=== PATIENT | male | born 1980 | race Caucasian/White ===

== ENCOUNTER 2016-10-26 17:40 | Emergency (ER) | payer OTHER ==
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
[2016-10-26] MEDS ORDERED: IBUPROFEN 400 MG TABLET (FP) PO ONE (17:48)
[2016-10-26 18:03] VITALS: BP 166/88; PULSE 67; TEMP 98.1; BMI 31.9
== END 2016-10-26 18:23 | disposition home or self-care (01) ==
LOC: FER 17:40
DX: S93.401A Sprain of unspecified ligament of right ankle, initial encounter (principal); W18.30XA Fall on same level, unspecified, initial encounter; Y93.89 Activity, other specified; Y92.511 Restaurant or cafe as the place of occurrence of the external cause; Y99.0 Civilian activity done for income or pay
CPT/HCPCS: 73610-TC-RT; 73630-TC-RT; 99282-25

== ENCOUNTER 2017-01-11 18:00 | Inpatient (IN) | payer OTHER ==
--- NOTE | 2017-01-11 18:04 | PDOC ---
History of Present Illness - General Chief Complaint: Respiratory Stated Complaint: COUGH Time Seen by Provider: 01/11/17 18:04 Past History - Past Medical History Allergies/Adverse Reactions: Allergies Allergy/AdvReac Type Severity Reaction Status Date / Time No Known Allergies Allergy Verified 01/11/17 18:03 Home Medications: Ambulatory Orders Insulin Glulisine [Apidra] unit SQ TID 09/24/14 Insulin Glargine,Hum.rec.anlog [Lantus (10mL VIAL) -] 50 units SQ BID 08/28/15 Etanercept [Enbrel] 50 mg SQ WEEKLY 09/12/15 Naproxen [Naprosyn] 500 mg PO BID PRN #20 tablet 10/26/16 Anemia: No Asthma: No Cancer: No Cardiac Disorders: No CVA: No COPD: No CHF: No Dementia: No Diabetes: Yes (type 2) GI Disorders: No Disorders: No HTN: No Hypercholesterolemia: No Liver Disease: No Seizures: No Thyroid Disease: No - Surgical History Abdominal Surgery: No Appendectomy: No Cardiac Surgery: No Cholecystectomy: No Lung Surgery: No Neurologic Surgery: No Orthopedic Surgery: No - Immunization History Immunization Up to Date: Yes - Psycho/Social/Smoking Cessation Hx Anxiety: No Suicidal Ideation: No Smoking Status: No Smoking History: Unknown if ever smoked Have you smoked in the past 12 months: No Number of Cigarettes Smoked Daily: 0 Hx Alcohol Use: No Drug/Substance Use Hx: No Substance Use Type: None Hx Substance Use Treatment: No *DC/Admit/Observation/Transfer - Discharge Dispostion Condition at time of disposition: Stable
[2017-01-11] MEDS ORDERED: SODIUM CHLORIDE 1,000 ML IV STA (18:14)
--- NOTE | 2017-01-11 18:15 | PDOC ---
History of Present Illness - General Chief Complaint: Respiratory Stated Complaint: COUGH Time Seen by Provider: 01/11/17 18:04 History Source: Patient, Significant Other Exam Limitations: No Limitations - History of Present Illness Initial Comments: 36 yo M with h/o diabetes and rheumatoid arthritis on enbrel presented to the ED with flu like symptoms x 1 month. The symptoms include productive cough with green sputum + blood tinted, fever with Tmax 104F, chills, sore throat, n/v, night sweat, ear pain, weight loss of 20lbs. One and half months ago, his girlfriend was screened for TB with quantiferon and it's positive but X-ray was negative. He denies recent travel, sick contact, being foreign born. Past History - Past Medical History Allergies/Adverse Reactions: Allergies Allergy/AdvReac Type Severity Reaction Status Date / Time No Known Allergies Allergy Verified 01/11/17 18:03 Home Medications: Ambulatory Orders Insulin Glulisine [Apidra] unit SQ TID 09/24/14 Insulin Glargine,Hum.rec.anlog [Lantus (10mL VIAL) -] 50 units SQ BID 08/28/15 Etanercept [Enbrel] 50 mg SQ WEEKLY 09/12/15 Anemia: No Asthma: No Cancer: No Cardiac Disorders: No CVA: No COPD: No CHF: No Dementia: No Diabetes: Yes GI Disorders: No Disorders: No HTN: No Hypercholesterolemia: No Liver Disease: No Seizures: No Thyroid Disease: No - Surgical History Abdominal Surgery: No Appendectomy: No Cardiac Surgery: No Cholecystectomy: No Lung Surgery: No Neurologic Surgery: No Orthopedic Surgery: No - Immunization History Immunization Up to Date: Yes - Psycho/Social/Smoking Cessation Hx Anxiety: No Suicidal Ideation: No Smoking Status: No Smoking History: Never smoked Have you smoked in the past 12 months: No Number of Cigarettes Smoked Daily: 0 Hx Alcohol Use: (occasional) Drug/Substance Use Hx: No Substance Use Type: None Hx Substance Use Treatment: No Review of Systems - Review of Systems Constitutional: Yes: Chills, Fever, Loss of Appetite, Malaise, Night Sweats, Unintentional Wgt. Loss (20lbs weight loss) HEENTM: Yes: Throat Pain Respiratory: Yes: Cough, Shortness of Breath, Productive cough Cardiac (ROS): Yes: Chest Pain (from coughing) : No: Dysuria *Physical Exam - Vital Signs Last Vital Signs Temp Pulse Resp BP Pulse Ox 98.7 F 97 H 24 133/91 95 01/11/17 18:00 01/11/17 18:00 01/11/17 18:00 01/11/17 18:00 01/11/17 18:00 - Physical Exam General Appearance: No: Apparent Distress Respiratory/Chest: positive: Lungs Clear, Normal Breath Sounds Cardiovascular: positive: Regular Rhythm, Regular Rate, S1, S2. negative: Murmur ED Treatment Course - LABORATORY CBC & Chemistry Diagram: 01/11/17 18:35 01/11/17 18:35 Medical Decision Making - Medical Decision Making 01/11/17 18:27 36 yo with immunosupressed state on enbrel p/w persist cough, night sweat, weight loss x 1 month. TB is high on the differentials. Will obtain chest pain, blood work. 01/11/17 18:40 Given 1gm Ceftriaxone IVPB and 1gm of vanco to cover atypicals due to his immunosupressed state *DC/Admit/Observation/Transfer Diagnosis at time of Disposition: Cough, Sepsis, Pneumonia - Discharge Dispostion Condition at time of disposition: Stable - Referrals Referrals: Venessa Feldman [Primary Care Provider] -
[2017-01-11 18:19] VITALS: BMI 28.8
--- NOTE | 2017-01-11 18:21 | PDOC ---
Attending Attestation - Resident Resident Name: Sai Caban - ED Attending Attestation I have performed the following: I have examined & evaluated the patient, The case was reviewed & discussed with the resident, I agree w/resident's findings & plan, Exceptions are as noted - HPI HPI: 01/11/17 18:15 The patient is a 36 year old male with a past medical history of type two diabetes, rheumatoid arthritis (on Etanercept) who presents to the ED complaining of 1 month of ongoing cough (productive of blood tinged green sputum ), fever, weight loss (20 pounds in 1 month) and night sweats. He denies travel to the [facility] and the [place] or [facility]. He denies travel outside of the country. He was born in the . He has no known contact with tuberculosis. He denies being ever being incarcerated. His place of residence apparently has many mice. He has not had contact with mouse feces. He has a cousin with similar symptoms. His girlfriend tested positive for TB via skin test in the distant past but has had a clear CXR for many years. 01/11/17 18:21 - Physicial Exam PE: 01/11/17 18:20 Vitals noted He is well appearing and in no acute distress He has no wheeze but he does have post-inspiratory cough He has no focal crackles 01/11/17 18:20 01/11/17 18:26 01/11/17 18:27 - Medical Decision Making 01/11/17 18:21 He is well appearing and in no acute distress He has two SIRS criteria -- heart rate greater than 90 and respiratory rate greater than 20 Infection is likely given his report of subjective fever He meets diagnostic criteria for sepsis Given his immunocompromised status the differential diagnosis is broad It includes mycobacterium tuberculosis, non-mycobacterial tuberculoid illnesses , fungal pneumonias, hanta virus, rheumatoid lung disease He could also just have post-infectious persistent bronchospasm He will require admission and ID consultation Will obtain labs Will administer duoneb 01/11/17 18:24 CXR emergency department interpretation: subtle increased interstitial markings in lower lung petersen Some very subtle obscuring of the left lateral inferior heart border Given his immunocompromised status I favor erring on the side of over-reading the CXR Will treat for community acquired pneumonia with Ceftriaxone and Azithromycin plus vancomycin Labs pending 01/11/17 18:41 Case discussed in detail with oncoming Emergency Physician including history, physical exam and ancillary studies. Oncoming Emergency Physician has assumed care for the patient and will complete the evaluation and treatment. 01/11/17 18:42 Discharge Disposition - Diagnosis Cough, Sepsis, Pneumonia - Discharge Dispostion Condition at time of disposition: Stable Admit: Yes - Referrals Referrals: Venessa Feldman [Primary Care Provider] -
[2017-01-11] MEDS ORDERED: ALBUTEROL SO4 2.5/IPRATROPIUM 0.5 INH SOL 3 ML VIAL.NEB. NEB ONE ×2 (18:24→18:43)
[2017-01-11] MEDS ORDERED: CEFTRIAXONE 1 GM in DEXTROSE 5%-WATER - 50 ML IVPB ONE ×2 (18:38→18:46)
[2017-01-11] MEDS ORDERED: VANCOMYCIN 1 GRAM (PRE-DOCKED) 1,000 MG/250 ML BAG IVPB ONE (18:46)
[2017-01-11] MEDS ORDERED: cefTRIAXone SODIUM 1 GM VIAL ONE (18:49)
[2017-01-11] MEDS ORDERED: VANCOMYCIN 1,000 MG VIAL (RESTRICTED TO ID ONLY) ONE (18:50)
[2017-01-11 18:59] LABS: BASOPHIL 0.5 % (0-2.0); EOSINOPHIL 0.3 % (0-4.5); MCH 29.9 pg (25.7-33.7); MCHC 34.8 g/dl (32.0-35.9); MEAN CELL VOLUME 85.9 fl (80-96); MEAN PLT VOLUME 10.3 fl (7.5-11.1); NEUTROPHILS 77.6 % (42.8-82.8); PLATELET COUNT 273 K/MM3 (134-434); RDW 11.8 % (11.9-15.9); WHITE BLOOD COUNT 17.3 K/mm3 (4.0-10.8)
[2017-01-11 19:05] LABS: ALBUMIN 3.7 g/dl (3.5-5.0); ALK PHOS 99 U/L (32-92); ANION GAP 10 (8-16); BILIRUBIN,TOTAL 0.5 mg/dl (0.2-1.0); CALCIUM 9.1 mg/dl (8.4-10.2); CO2 25 mmol/L (22-28); COCKROFT - GAULT 93.91; CREATININE 1.3 mg/dl (0.6-1.3); SGOT/AST 20 U/L (10-42); SGPT/ALT 29 U/L (10-40)
[2017-01-11 19:10] LABS: INR 1.17 (0.82-1.09); PROTHROMBIN TIME (PATIENT) 13.1 SEC (10.2-13.0)
[2017-01-11 19:17] LABS: GLUCOSE,RANDOM 382 mg/dl (74-106)
[2017-01-11] MEDS ORDERED: INSULIN REGULAR HUMAN 100 UNITS/ML *VIAL ONE (19:19)
[2017-01-11] MEDS ORDERED: INSULIN REGULAR HUMAN 100 UNITS/ML *VIAL IVPUSH ONE (19:19)
[2017-01-11] MEDS ORDERED: HEMOQUE TEST 1 EACH EACH ONE (19:45)
--- NOTE | 2017-01-11 21:17 | HP ---
CHIEF COMPLAINT: Productive Cough, Fever, Night Sweats, Weight Loss PCP: HISTORY OF PRESENT ILLNESS: This is a 36 y/o male with a past medical history of Type II DM, RA (on Embrel) . Who presents to the ED with productive cough- green phlegm, sore throat, hemoptysis, fever, night sweats, weakness, weight loss 30lbs since early December. Patient reports having low grade fevers 99-101 for approximately 2 weeks. Patient reports the cough varies from productive to non-productive and dry. Patient reports taking OTCs with little relief. Patient reports his cousin, who is his roommate had similar cold symptoms but recovered. He reports a recent rodent infestation in his building and apartment. He denies having any pets. Patient denies recent travel. Patient denies AP, vomiting, diarrhea, constipation, dysuria. ER course was notable for: (1) WBC 17.3 (2) Chest Xray- image infiltrate, report pending (3) Glucose 382 Recent Travel: None PAST MEDICAL HISTORY: See HPI PAST SURGICAL HISTORY: None Social History: Smoking: Never Alcohol: Occasional Drugs: None Lives with S.O. 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 Family History: Grandmother: DM Both parents - unknown hx Allergies No Known Allergies Allergy (Verified 01/11/17 18:03) HOME MEDICATIONS: Home Medications Medication Instructions Recorded Insulin Glulisine [Apidra] unit SQ TID 09/24/14 Insulin Glargine,Hum.rec.anlog 50 units SQ BID 08/28/15 [Lantus (10mL VIAL) -] Etanercept [Enbrel] 50 mg SQ WEEKLY 09/12/15 REVIEW OF SYSTEMS CONSTITUTIONAL: fever, generalized weakness, malaise, weight change Absent: chills, diaphoresis, loss of appetite HEENT: throat pain Absent: rhinorrhea, nasal congestion, throat swelling, difficulty swallowing, mouth swelling, ear pain, eye pain, visual changes CARDIOVASCULAR: Absent: chest pain, syncope, palpitations, irregular heart rate, lightheadedness , peripheral edema RESPIRATORY: cough, hemoptysis Absent: shortness of breath, dyspnea with exertion, orthopnea, wheezing, stridor , GASTROINTESTINAL: nausea Absent: abdominal pain, abdominal distension, vomiting, diarrhea, constipation, melena, hematochezia GENITOURINARY: Absent: dysuria, frequency, urgency, hesitancy, hematuria, flank pain, genital pain MUSCULOSKELETAL: myalgia Absent: arthralgia, joint swelling, back pain, neck pain SKIN: Absent: rash, itching, pallor HEMATOLOGIC/IMMUNOLOGIC: Absent: easy bleeding, easy bruising, lymphadenopathy, frequent infections ENDOCRINE: unexplained weight loss Absent: unexplained weight gain, heat intolerance, cold intolerance NEUROLOGIC: Absent: headache, focal weakness or paresthesias, dizziness, unsteady gait, seizure, mental status changes, bladder or bowel incontinence PSYCHIATRIC: Absent: anxiety, depression, suicidal or homicidal ideation, hallucinations. PHYSICAL EXAMINATION GENERAL: Awake, alert, and fully oriented, in no acute distress. HEAD: Normal with no signs of trauma. EYES: Pupils equal, round and reactive to light, extraocular movements intact, sclera anicteric, conjunctiva clear. No lid lag. EARS, NOSE, THROAT: Dry mucous membranes. Ears normal, nares patent, oropharynx clear without exudates. NECK: Normal range of motion, supple without lymphadenopathy, JVD, or masses. LUNGS: Breath sounds equal, clear to auscultation bilaterally. No wheezes, and no crackles. No accessory muscle use. HEART: Regular rate and rhythm, normal S1 and S2 without murmur, rub or gallop. ABDOMEN: Soft, nontender, not distended, normoactive bowel sounds, no guarding, no rebound, no masses. No hepatomegaly or splenomegaly. MUSCULOSKELETAL: Generalized tenderness. Normal range of motion at all joints. No bony deformities. No CVA tenderness. UPPER EXTREMITIES: 2+ pulses, warm, well-perfused. No cyanosis. No clubbing. No peripheral edema. LOWER EXTREMITIES: 2+ pulses, warm, well-perfused. No calf tenderness. No peripheral edema. NEUROLOGICAL: Cranial nerves II-XII intact. Normal speech. Normal gait. PSYCHIATRIC: Cooperative. Good eye contact. Appropriate mood and affect. SKIN: Warm, dry, normal turgor, no rashes or lesions noted, normal capillary refill. Laboratory Results - last 24 hr 3 01/11/17 01/11/17 01/11/17 18:35 18:35 18:35 WBC 17.3 H D RBC 4.95 Hgb 14.8 Hct 42.5 MCV 85.9 MCHC 34.8 RDW 11.8 L Plt Count 273 D MPV 10.3 D Neutrophils % 77.6 D Lymphocytes % 13.3 D Monocytes % 8.3 Eosinophils % 0.3 D Basophils % 0.5 INR 1.17 PTT (Actin FS) 24.0 L Sodium 132 L Potassium 4.1 Chloride 97 L Carbon Dioxide 25 Anion Gap 10 BUN 17 D Creatinine 1.3 Creat Clearance w eGFR > 60 Random Glucose 382 H* D Lactic Acid Calcium 9.1 Total Bilirubin 0.5 D AST 20 D ALT 29 Alkaline Phosphatase 99 H Total Protein 7.0 Albumin 3.7 Urine Color Urine Appearance Urine pH Ur Specific [place] Urine Protein Urine Glucose (UA) Urine Ketones Urine Blood Urine Nitrite Urine Bilirubin Urine Urobilinogen Ur Leukocyte Esterase 3 01/11/17 01/11/17 01/11/17 18:35 21:02 22:34 WBC RBC Hgb Hct MCV MCHC RDW Plt Count MPV Neutrophils % Lymphocytes % Monocytes % Eosinophils % Basophils % INR PTT (Actin FS) Sodium Potassium Chloride Carbon Dioxide Anion Gap BUN Creatinine Creat Clearance w eGFR Random Glucose Lactic Acid 1.654 0.962 Calcium Total Bilirubin AST ALT Alkaline Phosphatase Total Protein Albumin Urine Color Yellow Urine Appearance Clear Urine pH 6.0 Ur Specific [place] 1.020 Urine Protein Negative Urine Glucose (UA) 2+ H Urine Ketones 2+ H Urine Blood Negative Urine Nitrite Negative Urine Bilirubin Negative Urine Urobilinogen 0.2 e.u/dl Ur Leukocyte Esterase Negative 3 01/11/17 22:34 WBC RBC Hgb Hct MCV MCHC RDW Plt Count MPV Neutrophils % Lymphocytes % Monocytes % Eosinophils % Basophils % INR PTT (Actin FS) Sodium Potassium Chloride Carbon Dioxide Anion Gap BUN Creatinine Creat Clearance w eGFR Random Glucose 462 H* D Lactic Acid Calcium Total Bilirubin AST ALT Alkaline Phosphatase Total Protein Albumin Urine Color Urine Appearance Urine pH Ur Specific [place] Urine Protein Urine Glucose (UA) Urine Ketones Urine Blood Urine Nitrite Urine Bilirubin Urine Urobilinogen Ur Leukocyte Esterase ASSESSMENT/PLAN: This is a 36 y/o male with a PMHx of: Type II DM, RA (on Embrel). Who presents to the ED for fever, chills, cough, generalized bodyaches, hemopytsis, weight loss. Admitted for CAP, Sepsis, Cough for further evaluation of their emergent condition. Plan 1. Community Acquired Pneumonia - Blood Cultures-pending - Urine Culture- pending - Urine legionella-pending - +Leukocytosis - Vancomyxin, Ceftriaxone given in ED for broad spectrum coverage - Will continue Ceftriaxone, add Azithromycin - Appreciate ID Consult - Monitor CBC, BMP - Monitor vitals - Duonebs - O2 2. Sepsis - qSOFA Score 1 - SIRS Criteria II Met - See Above - LA x2 wnl - Continue IVF 3. Cough - r/o TB, Hanta Virus - Isolation Precautions - Appreciate ID Consult - Duonebs - Robitussin prn 4. Diabetes Mellitus - Uncontrolled - ISS - BGMs - Hold home meds for tighter glycemic control - HgBA1C in am - 1800 ADA Diet - f/u with Endocrinology in outpatient 5. RA - Continue Embrel weekly 6. FEN - NS@150cc/hr - Replete lytes prn - Low Na, 1800 ADA Diet 7. DVT Prophylaxis - OOB - SCDs Code Status: Full Code Dispo: Continue Inpatient Care Problem List - Problem (1) Pneumonia Code(s): J18.9 - PNEUMONIA, UNSPECIFIED ORGANISM (2) Sepsis Code(s): A41.9 - SEPSIS, UNSPECIFIED ORGANISM (3) Cough Code(s): R05 - COUGH (4) Diabetes Code(s): E11.9 - TYPE 2 DIABETES MELLITUS WITHOUT COMPLICATIONS (5) Rheumatoid arthritis Code(s): M06.9 - RHEUMATOID ARTHRITIS, UNSPECIFIED (6) DVT prophylaxis Code(s): IUT2671 - Visit type - Emergency Visit Emergency Visit: Yes ED Registration Date: 01/11/17 Care time: The patient presented to the Emergency Department on the above date and was hospitalized for further evaluation of their emergent condition. - New Patient This patient is new to me today: Yes Date on this admission: 01/11/17 - Critical Care Critical Care patient: No
[2017-01-11 23:06] LABS: URINE APPEARANCE Clear; URINE BILIRUBIN Negative (NEGATIVE); URINE BLOOD Negative (NEGATIVE); URINE GLUCOSE (UA) 2+ (NEGATIVE); URINE KETONE 2+ (NEGATIVE); URINE LEUK ESTERASE Negative (NEGATIVE); URINE NITRITE Negative (NEGATIVE); URINE PROTEIN Negative (NEGATIVE); URINE UROBILINOGEN 0.2 E.U/dl (0.2-1.0)
[2017-01-11 23:08] LABS: URINE COLOR YELLOW
[2017-01-11] MEDS ORDERED: INSULIN (NOVOLOG) ASPART 100 UNITS/ML 10ML VIAL SQ ONE (23:27)
[2017-01-11] MEDS ORDERED: INSULIN (NOVOLOG) ASPART 100 UNITS/ML 10ML VIAL ONE (23:28)
[2017-01-11] MEDS: INSULIN SLIDING SCALE (NOVOLOG) 1 VIAL SQ SCH (23:37)
[2017-01-12] MEDS ORDERED: ALBUTEROL SO4 2.5/IPRATROPIUM 0.5 INH SOL 3 ML VIAL.NEB. NEB PRN (00:19)
[2017-01-12] MEDS: guaiFENesin 200 MG/10 ML 10 ML UNIT-DOSE CUPS PO PRN ×2 (00:25→22:06)
[2017-01-12] MEDS: INSULIN SLIDING SCALE (NOVOLOG) 1 VIAL SQ SCH ×4 (06:43→22:07)
[2017-01-12] MEDS ORDERED: INSULIN (NOVOLOG) ASPART 100 UNITS/ML 10ML VIAL ONE ×2 (06:51→22:05)
[2017-01-12 08:24] LABS: BASOPHIL 0.2 % (0-2.0); EOSINOPHIL 0.6 % (0-4.5); MCHC 34.7 g/dl (32.0-35.9); MEAN CELL VOLUME 86.4 fl (80-96); MEAN PLT VOLUME 10.4 fl (7.5-11.1); NEUTROPHILS 69.9 % (42.8-82.8); PLATELET COUNT 222 K/MM3 (134-434); RDW 11.8 % (11.9-15.9); WHITE BLOOD COUNT 11.6 K/mm3 (4.0-10.8)
[2017-01-12 08:27] LABS: ANION GAP 10 (8-16); CALCIUM 8.3 mg/dl (8.4-10.2); CO2 22 mmol/L (22-28); CREATININE 1.1 mg/dl (0.6-1.3); GLUCOSE,RANDOM 252 mg/dl (74-106)
[2017-01-12 08:48] LABS: COCKROFT - GAULT NT
[2017-01-12] MEDS ORDERED: AZITHROMYCIN IVPB 250 ML IVPB SCH (10:00)
[2017-01-12] MEDS: CEFTRIAXONE 50 ML IVPB SCH (10:03)
[2017-01-12] MEDS ORDERED: SODIUM CHLORIDE 1,000 ML IV SCH ×3 (13:00→19:01)
[2017-01-12] MEDS ORDERED: TUBERCULIN PPD 5 TU/0.1ML SYRINGE (IN PATIENT USE ONLY) ID ONE (13:45)
[2017-01-12] MEDS: INSULIN (NOVOLOG) ASPART 100 UNITS/ML 10ML VIAL SQ SCH (17:28)
--- NOTE | 2017-01-12 18:46 | PN ---
Physical Exam: SUBJECTIVE: Patient seen and examined. He doesn't remember if he had a ppd before starting embral, he has been diaphoretic on and off for "Awhile" now. Denies n/v, abd pain, sob, chest pain, changes in bowel or bladder. at bedside OBJECTIVE: Vital Signs Period Temp Pulse Resp BP Sys/Franco Pulse Ox Last 24 Hr 98.3 F-99.3 F 67-88 18-19 118-150/59-64 96-100 PE Neuro: alert, awake, cn 2-12intact Pulm: Course bases, no wheezing, no sob CV: s1 s2 rrr no mrg Abd: s nt nd +bs Ext: warm, no le edema Skin: clammy Laboratory Results - last 24 hr 01/11/17 01/11/17 01/11/17 21:02 22:34 22:34 WBC RBC Hgb Hct MCV MCHC RDW Plt Count MPV Neutrophils % Lymphocytes % Monocytes % Eosinophils % Basophils % Sodium Potassium Chloride Carbon Dioxide Anion Gap BUN Creatinine POC Glucometer Random Glucose 462 H* D Hemoglobin A1c % Lactic Acid 0.962 Calcium Urine Color Yellow Urine Appearance Clear Urine pH 6.0 Ur Specific Wilson 1.020 Urine Protein Negative Urine Glucose (UA) 2+ H Urine Ketones 2+ H Urine Blood Negative Urine Nitrite Negative Urine Bilirubin Negative Urine Urobilinogen 0.2 e.u/dl Ur Leukocyte Esterase Negative 01/12/17 01/12/17 01/12/17 03:36 06:00 06:30 WBC 11.6 H D RBC 4.57 Hgb 13.7 Hct 39.5 MCV 86.4 MCHC 34.7 RDW 11.8 L Plt Count 222 MPV 10.4 Neutrophils % 69.9 Lymphocytes % 18.4 D Monocytes % 10.9 H Eosinophils % 0.6 D Basophils % 0.2 Sodium Potassium Chloride Carbon Dioxide Anion Gap BUN Creatinine POC Glucometer 207 Random Glucose Hemoglobin A1c % 12.5 H D Lactic Acid Calcium Urine Color Urine Appearance Urine pH Ur Specific Wilson Urine Protein Urine Glucose (UA) Urine Ketones Urine Blood Urine Nitrite Urine Bilirubin Urine Urobilinogen Ur Leukocyte Esterase 01/12/17 01/12/17 01/12/17 06:30 06:32 11:26 WBC RBC Hgb Hct MCV MCHC RDW Plt Count MPV Neutrophils % Lymphocytes % Monocytes % Eosinophils % Basophils % Sodium 138 Potassium 4.4 Chloride 106 Carbon Dioxide 22 Anion Gap 10 BUN 15 Creatinine 1.1 POC Glucometer 288 323 Random Glucose 252 H D Hemoglobin A1c % Lactic Acid Calcium 8.3 L Urine Color Urine Appearance Urine pH Ur Specific Wilson Urine Protein Urine Glucose (UA) Urine Ketones Urine Blood Urine Nitrite Urine Bilirubin Urine Urobilinogen Ur Leukocyte Esterase Active Medications Generic Name Dose Route Start Last Admin Trade Name Freq PRN Reason Stop Dose Admin Acetaminophen 650 mg 01/11/17 21:07 Tylenol - PO Q6H PRN FEVER OR PAIN Albuterol/Ipratropium 1 amp 01/12/17 00:19 Duoneb - NEB Q6H PRN SHORTNESS OF BREATH Guaifenesin 10 ml 01/12/17 00:18 01/12/17 00:25 Robitussin - PO 10 ml Q6H PRN Administration COUGH Azithromycin 250 mls @ 250 mls/hr 01/12/17 10:00 01/12/17 10:04 Zithromax 500mg Ivpb (Pre-Docked) IVPB 250 mls/hr DAILY [facility] Administration Ceftriaxone Sodium 50 mls @ 100 mls/hr 01/12/17 10:00 01/12/17 10:03 Rocephin 1gm Ivpb (Pre-Docked) IVPB 100 mls/hr DAILY [facility] Administration Sodium Chloride 1,000 mls @ 100 mls/hr 01/12/17 13:00 01/12/17 17:18 Normal Saline - IV 100 mls/hr ASDIR [facility] Administration Insulin Aspart 1 vial 01/11/17 22:00 01/12/17 17:31 Novolog Vial Sliding Scale - SQ 8 units ACHS [facility] Administration Protocol Insulin Aspart 5 units 01/12/17 16:30 01/12/17 17:28 Novolog Vial SQ 5 units TIDAC [facility] Administration Protocol Insulin Detemir 50 units 01/12/17 22:00 Levemir Vial SQ BID [facility] Microbiology 01/11/17 18:35 Blood Culture - Preliminary Blood - Peripheral Venous NO GROWTH OBTAINED AFTER 24 HOURS, INCUBATION TO CONTINUE FOR 4 DAYS. 01/12/17 08:02 Direct Acid Fast Bacilli Smear - Final Sputum - Expectorated 01/11/17 23:40 Respiratory Virus Panel - Preliminary Nasopharyngeal Swab 01/12/17 08:02 Gram Stain - Final Sputum - Expectorated 01/11/17 23:40 Group A Strep Rapid Antigen - Final Throat 01/11/17 23:40 Influenza Types A,B Antigen (MARILEE) - Final Nasopharyngeal Swab - Final Assessment: 36 year old male with a past medical history of Type II DM, RA (on Embrel) admitted with productive cough- green phlegm, sore throat, hemoptysis, fever, night sweats, weakness, weight loss 30lbs since early December. Plan: 1. Community Acquired PNA - Leukocytosis downtrending - s/p vanco in ED - Ceftriaxone/azithro (day 1) - Blood cultures pending - Rapid strep negative - CT chest shows basilar infiltrates, no lymphadenopathy, spleen enlarged 2. Night sweats/30lb weight loss - R/o: TB, hanta virus, nonTB myobacterium, rheum lung dz - AFB x3; 1 collected - Sputum cx - PPD placed 01/02 - Quant gold to be drawn tomorrow per lab - NS x1L today - ID consulted 3. RA - Has been on Embrel x1 year 4. DM II, uncontrolled - Levemir 50units BID - ISS, BGM ACHS - 5units novolog TIDAC Visit type - Emergency Visit Emergency Visit: Yes ED Registration Date: 01/11/17 Care time: The patient presented to the Emergency Department on the above date and was hospitalized for further evaluation of their emergent condition. - New Patient This patient is new to me today: Yes Date on this admission: 03/15/17 - Critical Care Critical Care patient: No
[2017-01-12] MEDS: ACETAMINOPHEN 325 MG TABLET (FP) PO PRN (22:06)
[2017-01-12] MEDS: INSULIN DETEMIR 100 UNITS/ML MDV SQ SCH (22:07)
--- NOTE | 2017-01-12 22:40 | PN ---
Progress Note (short form) - Note Progress Note: ID Consult dictated Fever/ chills, productive cough/ hemoptysis, 30lb wt loss in young diabetic male with on anti-TNF agent. CT chest patchy lower lobe infiltrates Community acquired/ atypical pneumonia v. AFB disease v. OI Possible malignancy Await c/s PPD/ Quantiferon, AFB, HIV test Empiric ceftriaxone/ zithromax
[2017-01-13] MEDS: INSULIN SLIDING SCALE (NOVOLOG) 1 VIAL SQ SCH ×4 (06:51→21:49)
[2017-01-13] MEDS: INSULIN (NOVOLOG) ASPART 100 UNITS/ML 10ML VIAL SQ SCH ×3 (06:52→17:32)
--- NOTE | 2017-01-13 08:45 | PN ---
Physical Exam: SUBJECTIVE: Patient seen and examined, patient reports ongoing cough and wheezing. OBJECTIVE:36 year old male with a past medical history of Type II DM, RA (on Embrel, last dose was 2 weeks ago). patient was admitted from the emergency department for billateral PNA. Vital Signs Period Temp Pulse Resp BP Sys/Franco Pulse Ox Last 24 Hr 98.3 F-99.6 F 65-79 16-18 132-138/64-80 96-98 GENERAL: The patient is awake, alert, and fully oriented, in no acute distress. HEAD: Normal with no signs of trauma. EYES: PERRL, extraocular movements intact, sclera anicteric, conjunctiva clear. No ptosis. ENT: Ears normal, nares patent, oropharynx clear without exudates, moist mucous membranes. NECK: Trachea midline, full range of motion, supple. LUNGS: Breath sounds equal, billateral inspiratory wheeze to apexes, crackles to bases, no accessory muscle use. HEART: Regular rate and rhythm, S1, S2 without murmur, rub or gallop. ABDOMEN: Soft, nontender, nondistended, normoactive bowel sounds, no guarding, no rebound, no hepatosplenomegaly, no masses. EXTREMITIES: 2+ pulses, warm, well-perfused, no edema. NEUROLOGICAL: Cranial nerves II through XII grossly intact. Normal speech, gait not observed. PSYCH: Normal mood, normal affect. SKIN: Warm, dry, normal turgor, no rashes or lesions noted Laboratory Results - last 24 hr 01/12/17 01/12/17 01/12/17 06:00 06:30 06:30 WBC 11.6 H D RBC 4.57 Hgb 13.7 Hct 39.5 MCV 86.4 MCHC 34.7 RDW 11.8 L Plt Count 222 MPV 10.4 Neutrophils % 69.9 Lymphocytes % 18.4 D Monocytes % 10.9 H Eosinophils % 0.6 D Basophils % 0.2 Sodium 138 Potassium 4.4 Chloride 106 Carbon Dioxide 22 Anion Gap 10 BUN 15 Creatinine 1.1 POC Glucometer Random Glucose 252 H D Hemoglobin A1c % 12.5 H D Calcium 8.3 L 01/12/17 01/12/17 01/12/17 11:26 17:11 21:58 WBC RBC Hgb Hct MCV MCHC RDW Plt Count MPV Neutrophils % Lymphocytes % Monocytes % Eosinophils % Basophils % Sodium Potassium Chloride Carbon Dioxide Anion Gap BUN Creatinine POC Glucometer 323 351 397 Random Glucose Hemoglobin A1c % Calcium 01/13/17 06:38 WBC RBC Hgb Hct MCV MCHC RDW Plt Count MPV Neutrophils % Lymphocytes % Monocytes % Eosinophils % Basophils % Sodium Potassium Chloride Carbon Dioxide Anion Gap BUN Creatinine POC Glucometer 212 Random Glucose Hemoglobin A1c % Calcium Active Medications Generic Name Dose Route Start Last Admin Trade Name Freq PRN Reason Stop Dose Admin Acetaminophen 650 mg 01/11/17 21:07 01/12/17 22:06 Tylenol - PO 650 mg Q6H PRN Administration FEVER OR PAIN Albuterol/Ipratropium 1 amp 01/12/17 00:19 Duoneb - NEB Q6H PRN SHORTNESS OF BREATH Guaifenesin 10 ml 01/12/17 00:18 01/12/17 22:06 Robitussin - PO 10 ml Q6H PRN Administration COUGH Ceftriaxone Sodium 50 mls @ 100 mls/hr 01/12/17 10:00 01/12/17 10:03 Rocephin 1gm Ivpb (Pre-Docked) IVPB 100 mls/hr DAILY [facility] Administration Azithromycin 250 mg/ Dextrose 250 mls @ 250 mls/hr 01/13/17 10:00 IVPB DAILY [facility] Insulin Aspart 1 vial 01/11/17 22:00 01/13/17 06:51 Novolog Vial Sliding Scale - SQ 4 units ACHS [facility] Administration Protocol Insulin Aspart 5 units 01/12/17 16:30 01/13/17 06:52 Novolog Vial SQ 5 units TIDAC [facility] Administration Protocol Insulin Detemir 50 units 01/12/17 22:00 01/12/17 22:07 Levemir Vial SQ 50 units BID [facility] Administration Microbiology 01/12/17 08:02 Sputum - Expectorated Gram Stain - Final 01/12/17 08:02 Sputum - Expectorated Sputum Culture - Preliminary NORMAL RESPIRATORY GERSON 01/11/17 23:40 Throat Throat Culture - Final NO BETA HEMOLYTIC STREPTOCOCCI ISOLATED 01/11/17 23:40 Throat Group A Strep Rapid Antigen - Final 01/11/17 22:34 Urine For Antigen Detection Legionella Antigen - Final 01/11/17 22:34 Urine For Antigen Detection Streptococcus pneumoniae Antigen (M - Final 01/12/17 08:02 Sputum - Expectorated AFB Smear Concentration - Preliminary 01/12/17 08:02 Sputum - Expectorated Direct Acid Fast Bacilli Smear - Final 01/12/17 08:02 Sputum - Expectorated Mycobacterial Culture - Preliminary 01/11/17 19:00 Blood - Peripheral Venous Blood Culture - Preliminary NO GROWTH OBTAINED AFTER 24 HOURS, INCUBATION TO CONTINUE FOR 4 DAYS. 01/11/17 18:35 Blood - Peripheral Venous Blood Culture - Preliminary NO GROWTH OBTAINED AFTER 24 HOURS, INCUBATION TO CONTINUE FOR 4 DAYS. 01/11/17 23:40 Nasopharyngeal Swab Respiratory Virus Panel - Preliminary 01/11/17 23:40 Nasopharyngeal Swab Influenza Types A,B Antigen (MARILEE) - Final , negative IM AGING CT scan of chest: bibasilar pulmonary infilitrates, mild spleenomegly ASSESSMENT/PLAN: 1. pulm: Community Acquired PNA - Leukocytosis downtrending pt afebrile - continue rocephin and zithromax - night sweats 20lbs weight loss noted, pending AFTsputum cultures and quantiforn gold, droplet precautions in place - appreciate the input of ID (Fede) - wheezing noted on exam start q6h combivent neb - incentive spirometer - questionable intersitial autoimmune lung disease, appreciate the input of pulmonary Dr Luong - 2) RA - last dose of embrel was 2 weeks ago, pt denies any joint pain - close montitoring - follow up with Dr Baldwin (outpatient) 3) endo IDDM uncontrolled - hgb a1c 12.7 - continue levermir 50 units bid - continue novolog ACHS sliding scale with 5 units of novolog TID F/E/N - diabetic diet - replete lytes prn ppx -oob - zantac dispo: requires inpatient care Visit type - Emergency Visit Emergency Visit: Yes ED Registration Date: 01/11/17 Care time: The patient presented to the Emergency Department on the above date and was hospitalized for further evaluation of their emergent condition. - New Patient This patient is new to me today: No - Critical Care Critical Care patient: No - Discharge Referral Referred to [facility] Med [facility].: No
[2017-01-13 09:01] LABS: ANION GAP 8 (8-16); BASOPHIL 0.1 % (0-2.0); CALCIUM 8.9 mg/dl (8.4-10.2); CO2 22 mmol/L (22-28); CREATININE 1.1 mg/dl (0.6-1.3); EOSINOPHIL 0.7 % (0-4.5); GLUCOSE,RANDOM 281 mg/dl (74-106); MCHC 34.5 g/dl (32.0-35.9); MEAN CELL VOLUME 86.7 fl (80-96); MEAN PLT VOLUME 9.7 fl (7.5-11.1); NEUTROPHILS 72.9 % (42.8-82.8); PLATELET COUNT 263 K/MM3 (134-434); RDW 11.6 % (11.9-15.9); WHITE BLOOD COUNT 12.4 K/mm3 (4.0-10.8)
[2017-01-13] MEDS: AZITHROMYCIN IVPB 250 MG in DEXTROSE 5%-WATER - 250 ML IVPB SCH (09:26)
[2017-01-13] MEDS: INSULIN DETEMIR 100 UNITS/ML MDV SQ SCH ×2 (09:27→21:45)
[2017-01-13] MEDS: CEFTRIAXONE 50 ML IVPB SCH (09:27)
--- NOTE | 2017-01-13 10:03 | PN ---
Progress Note, Physician History of Present Illness: OOB in chair C/O cough productive of greenish, blood- streaked sputum No C/O chest pain/ dyspnea No c/o fever/ chills - Current Medication List Current Medications: Active Medications Acetaminophen (Tylenol -) 650 mg PO Q6H PRN PRN Reason: FEVER OR PAIN Last Admin: 01/12/17 22:06 Dose: 650 mg Albuterol/Ipratropium (Duoneb -) 1 amp NEB Q6H PRN PRN Reason: SHORTNESS OF BREATH Guaifenesin (Robitussin -) 10 ml PO Q6H PRN PRN Reason: COUGH Last Admin: 01/12/17 22:06 Dose: 10 ml Ceftriaxone Sodium (Rocephin 1gm Ivpb (Pre-Docked)) 50 mls @ 100 mls/hr IVPB DAILY [facility] Last Admin: 01/13/17 09:27 Dose: 100 mls/hr Azithromycin 250 mg/ Dextrose 250 mls @ 250 mls/hr IVPB DAILY [facility] Last Admin: 01/13/17 09:26 Dose: 250 mls/hr Insulin Aspart (Novolog Vial Sliding Scale -) 1 vial SQ ACHS [facility] PRN Reason: Protocol Last Admin: 01/13/17 06:51 Dose: 4 units Insulin Aspart (Novolog Vial) 5 units SQ TIDAC [facility] PRN Reason: Protocol Last Admin: 01/13/17 06:52 Dose: 5 units Insulin Detemir (Levemir Vial) 50 units SQ BID [facility] Last Admin: 01/13/17 09:27 Dose: 50 units - Objective Vital Signs: Vital Signs Temperature 98.5 F 01/13/17 06:00 Pulse Rate 79 01/13/17 06:00 Respiratory Rate 16 01/13/17 08:41 Blood Pressure 138/80 01/13/17 06:00 O2 Sat by Pulse Oximetry (%) 96 01/13/17 08:41 Constitutional: Yes: No Distress Eyes: Yes: Conjunctiva Clear Cardiovascular: Yes: Regular Rate and Rhythm, S1, S2 Respiratory: Yes: Rhonchi Gastrointestinal: Yes: Normal Bowel Sounds, Soft. No: Tenderness Edema: No Labs: CBC, BMP 01/13/17 08:00 01/13/17 08:00 INR, PTT INR 1.17 (0.82-1.09) 01/11/17 18:35 Assessment/Plan Bibasilar pneumonia Diabetes mellitus RA on Embrel Await sputum c/s AFB HIV test Continue empiric zithromax/ ceftriaxone
--- NOTE | 2017-01-13 10:48 | PN ---
Progress Note (short form) - Note Progress Note: PULMONARY CONSULTATION DICTATED 01/13/17 IMP BILATERAL PNEUMONIA COMMUNITY ACQUIRED FEVER ,WT LOSS,NIGHT SWEATS,HEMOPTYSIS R/O TB,OPPORTUNISTIC,LYMPHOMA, PT ON EMBREL RA DM PLAN IV ANTIBIOTICS PER ID CULTURES INHALED BRONCHODILATORS PPD HIV TEST SERUM LDH DR PEÑALOZA Problem List - Problems (1) Cough Code(s): R05 - COUGH (2) Pneumonia Code(s): J18.9 - PNEUMONIA, UNSPECIFIED ORGANISM (3) Rheumatoid arthritis Code(s): M06.9 - RHEUMATOID ARTHRITIS, UNSPECIFIED (4) Diabetes Code(s): E11.9 - TYPE 2 DIABETES MELLITUS WITHOUT COMPLICATIONS (5) Hemoptysis Code(s): R04.2 - HEMOPTYSIS (6) Weight loss, unintentional Code(s): R63.4 - ABNORMAL WEIGHT LOSS (7) Night sweats Code(s): R61 - GENERALIZED HYPERHIDROSIS
[2017-01-13] MEDS: ALBUTEROL SO4 2.5/IPRATROPIUM 0.5 INH SOL 3 ML VIAL.NEB. NEB SCH ×3 (11:00→23:39)
[2017-01-13] MEDS ORDERED: INSULIN (NOVOLOG) ASPART 100 UNITS/ML 10ML VIAL ONE (11:46)
--- NOTE | 2017-01-13 12:21 | EKG ---
Test Reason : Blood Pressure : / mmHG Vent. Rate : 079 BPM Atrial Rate : 079 BPM P-R Int : 124 ms QRS Dur : 090 ms QT Int : 344 ms P-R-T Axes : 040 001 023 degrees QTc Int : 394 ms NORMAL SINUS RHYTHM NORMAL ECG WHEN COMPARED WITH ECG OF 03-AUG-2012 18:25, NO SIGNIFICANT CHANGE WAS FOUND Confirmed by SILVANA PRICE MD ([id number]) on 01/13/2017 12:21:38 PM Referred By: YANI COLON Confirmed By:SILVANA PRICE MD
--- NOTE | 2017-01-13 12:34 | CONS ---
DATE OF CONSULTATION: HISTORY: The patient is a 36-year-old male diabetic with a history of rheumatoid arthritis on antiTNF agent evaluated for pneumonia. The patient has not been feeling well for the past month or so. He reports developing influenza-like illness and for the past several weeks has had fevers, chills, night sweats, 30-pound weight loss, some nausea. He has had a cough now productive of greenish sputum with blood streaking. He presented to the emergency room where chest x-ray showed increased markings at the bases bilaterally. CAT scan confirmed the presence of bibasilar infiltrates. His course has been complicated by elevated white blood cell count. He has been on Enbrel for approximately 1 year. He is unsure whether or not he had a PPD prior to initiation of therapy. He denies any chest pain or shortness of breath. He is a nonsmoker. The patient lives at home. He has a significant other, female, who is healthy. He does live with a cousin who had a recent respiratory tract illness. He denies any recent hospitalization. No recent travel. He was born in the [place] and has had no foreign travel. No known TB exposure. Of note, he did have exposure to rodents in his residence. PAST MEDICAL HISTORY: Positive for diabetes mellitus and ankylosing spondylitis. He is followed by Dr. Bonilla and has been on Embrel for the past year or so. ALLERGIES: No known allergies. MEDICATIONS: Include insulin and Embrel. 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 He has a significant female other. Denies risk factors for HIV. His status is not known. Denies blood transfusions or intravenous drug use. No recent travel. No significant pet exposure. SYSTEMS REVIEW: Neurologic: No loss of consciousness, seizure activity, focal weakness. Cardiac: Negative chest pain or palpitations. Respiratory: As per HPI. Gastrointestinal: Positive for nausea, vomiting. Genitourinary: Negative for urinary tract infection. LABORATORY DATA: White count on admission 17.3, presently 11.6, hematocrit 39.5, platelet count 222, BUN 15, creatinine 1.1. Urinalysis negative. Blood cultures pending. AFB x1 negative. PHYSICAL EXAMINATION: General: He is awake and alert. He is in no acute distress. Vital Signs: Temperature 98.3, blood pressure 135/64, pulse 73 and regular, respirations 18 per minute. HEENT: Sclerae anicteric. Dry mucous membranes. Heart: S1, S2. Neck: Supple. No palpable nodes. Lungs: Rhonchi at the bases bilaterally. Abdomen: Soft. No tenderness elicited. No mass, rebound, or rigidity. Extremities: Negative for edema. IMPRESSION: Fever, chills, productive cough, hemoptysis, 30-pound weight loss in a young diabetic male with ankylosing spondylitis on antiTNF agent. Chest x-ray shows patchy bilateral lobe infiltrates. 1. Community-acquired versus atypical pneumonia. 2. Possible acid-fast bacilli disease versus opportunistic infection in light of immunosuppressive therapy. 3. Possible malignancy secondary to antiTNF agent. PLAN: Agree with respiratory isolation. Obtain sputum AFB. Apply PPD. Obtain QuantiFERON, HIV testing. Empiric antibiotic coverage with Zithromax and ceftriaxone pending workup. We will follow. Thank you for the kind referral. JOVANI JOSÉ M.D. [id number]
--- NOTE | 2017-01-13 12:55 | CONS ---
DATE OF CONSULTATION: 01/13/2017 REFERRING PHYSICIAN: Tabitha Adams MD HISTORY: The patient is a 36-year-old male with past medical history of type 2 diabetes mellitus, history of rheumatoid arthritis currently maintained on Embrel for approximately 1 year, nonsmoker admitted to [facility] with complaint of 1-month history of cough, sore throat, fever, night sweats, and 30-pound weight loss since early December. The patient states that he initially starting developing symptoms in early December. At that time, he had nonproductive cough and felt like he had the flu. He then started developing a sore throat and generalized weakness. Apparently about 2 weeks prior to this he started having increasing cough productive of green sputum as well as mixed with blood. He denied any chest pain. Denied any nausea, vomiting, or diaphoresis. He did complains of night sweats, progressive weakness, and a 30-pound weight loss. He presented to the emergency room with the above. Of note, also he states he is having low-grade temperatures 99-101 for the past 2 weeks. He presented to the emergency room with the above. In the emergency room, he underwent a CT scan of the chest, which revealed bilateral infiltrates, and he was admitted to the floor and started on antibiotic therapy. He denies any recent travel. He states no one in his family has been recently ill. He denies any history of TB in the past. 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 He denies any history of tobacco use. He also has no pets at home. He denies any nausea, vomiting, constipation, or diarrhea, although complains of some headaches. PAST MEDICAL HISTORY: Again, includes type 2 diabetes, rheumatoid arthritis maintained on Embrel. REVIEW OF SYSTEMS: Positive fever. Positive weight loss. Positive night sweats. Positive hemoptysis. Positive weakness. Positive chest congestion. No nausea, no vomiting. Positive weight loss. No joint pains. SOCIAL HISTORY: Nonsmoker. Occasional ETOH. 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 MEDICATIONS: Include Levemir, NovoLog, Robitussin, DuoNeb, ceftriaxone, Zithromax. PHYSICAL EXAMINATION: General: The patient is a well-developed, well-nourished male awake and alert in no acute distress. Vital Signs: He is currently afebrile. Blood pressure 138/80, respiratory rate 16, O2 saturation 98% on room air. HEENT: Normocephalic and atraumatic. Neck: Supple. Heart: Regular with S1, S2. Chest: Bilateral rhonchi. Abdomen: Soft. Bowel sounds positive. Extremities: No cyanosis or edema. LABORATORY DATA: WBC 12.4, hemoglobin 15.2, hematocrit 44, platelet count 263,000, INR 1.17, BUN 15, creatinine 1.1. Chest x-ray: Increased chowdhury at the bases. Chest CT: Notes bibasilar infiltrates and mildly enlarged spleen. IMPRESSION: Fever, weight loss, night sweats, bilateral infiltrates. 1. Likely community-acquired pneumonia. 2. Rule out possible opportunistic infection. The patient is at increased risk secondary to currently being on Embrel with a history of diabetes. Rule out possible tuberculosis or other opportunistic infections. 3. Hemoptysis secondary to pneumonia. 4. Diabetes. PLAN: Broad-spectrum antibiotics as per Infectious Disease, inhaled bronchodilators, cultures, HIV testing, sputum for C and S cytology. Obtain serum LDH. Obtain follow up. KEREN EPÑALOZA M.D. [id number]
[2017-01-13 13:47] LABS: HIV 1 & 2 AB NEGATIVE; HIV 1 AGp24 NEGATIVE
[2017-01-13] MEDS: guaiFENesin 200 MG/10 ML 10 ML UNIT-DOSE CUPS PO PRN (21:44)
[2017-01-13] MEDS: ACETAMINOPHEN 325 MG TABLET (FP) PO PRN (23:40)
[2017-01-14 06:26] VITALS: BP 132/66; PULSE 72; TEMP 98.5
[2017-01-14] MEDS: ALBUTEROL SO4 2.5/IPRATROPIUM 0.5 INH SOL 3 ML VIAL.NEB. NEB SCH ×2 (06:48→11:41)
[2017-01-14] MEDS: INSULIN (NOVOLOG) ASPART 100 UNITS/ML 10ML VIAL SQ SCH ×2 (06:53→12:25)
[2017-01-14] MEDS: INSULIN SLIDING SCALE (NOVOLOG) 1 VIAL SQ SCH ×2 (06:54→12:24)
--- NOTE | 2017-01-14 07:18 | PN ---
Progress Note, Physician History of Present Illness: PULMONARY FEELING BETTER, LESS HEMOPTYSIS,-SOB,AFEBRILE,PPD- - Current Medication List Current Medications: Active Medications Acetaminophen (Tylenol -) 650 mg PO Q6H PRN PRN Reason: FEVER OR PAIN Last Admin: 01/13/17 23:40 Dose: 650 mg Albuterol/Ipratropium (Duoneb -) 1 amp NEB QIDR [facility] Last Admin: 01/14/17 06:48 Dose: 1 amp Guaifenesin (Robitussin -) 10 ml PO Q6H PRN PRN Reason: COUGH Last Admin: 01/13/17 21:44 Dose: 10 ml Ceftriaxone Sodium (Rocephin 1gm Ivpb (Pre-Docked)) 50 mls @ 100 mls/hr IVPB DAILY [facility] Last Admin: 01/13/17 09:27 Dose: 100 mls/hr Azithromycin 250 mg/ Dextrose 250 mls @ 250 mls/hr IVPB DAILY [facility] Last Admin: 01/13/17 09:26 Dose: 250 mls/hr Insulin Aspart (Novolog Vial Sliding Scale -) 1 vial SQ ACHS [facility] PRN Reason: Protocol Last Admin: 01/14/17 06:54 Dose: Not Given Insulin Aspart (Novolog Vial) 5 units SQ TIDAC [facility] PRN Reason: Protocol Last Admin: 01/14/17 06:53 Dose: 5 units Insulin Detemir (Levemir Vial) 50 units SQ BID [facility] Last Admin: 01/13/17 21:45 Dose: 50 units - Objective Vital Signs: Vital Signs Temperature 98.5 F 01/14/17 06:00 Pulse Rate 72 01/14/17 06:00 Respiratory Rate 17 01/14/17 06:00 Blood Pressure 132/66 01/14/17 06:00 O2 Sat by Pulse Oximetry (%) 100 01/14/17 06:25 Constitutional: Yes: Well Nourished, Calm Eyes: Yes: WNL HENT: Yes: WNL, Other Cardiovascular: Yes: Regular Rate and Rhythm, S1, S2 Respiratory: Yes: Wheezes (OCC SCATTERED WHEEZES) Gastrointestinal: Yes: Normal Bowel Sounds, Soft Extremities: Yes: WNL Edema: No Labs: CBC, BMP INR, PTT INR 1.17 (0.82-1.09) 01/11/17 18:35 Laboratory Tests 01/13/17 08:00 LD Total 167 Problem List - Problems (1) Cough Code(s): R05 - COUGH (2) Pneumonia Code(s): J18.9 - PNEUMONIA, UNSPECIFIED ORGANISM (3) Rheumatoid arthritis Code(s): M06.9 - RHEUMATOID ARTHRITIS, UNSPECIFIED (4) Diabetes Code(s): E11.9 - TYPE 2 DIABETES MELLITUS WITHOUT COMPLICATIONS (5) Hemoptysis Code(s): R04.2 - HEMOPTYSIS (6) Weight loss, unintentional Code(s): R63.4 - ABNORMAL WEIGHT LOSS (7) Night sweats Code(s): R61 - GENERALIZED HYPERHIDROSIS Assessment/Plan IMP BILATERAL PNEUMONIA COMMUNITY ACQUIRED FEVER ,WT LOSS,NIGHT SWEATS,HEMOPTYSIS R/O TB,OPPORTUNISTIC,LYMPHOMA, PT ON EMBREL RA DM PLAN IV ANTIBIOTICS PER ID CULTURES INHALED BRONCHODILATORS CT ABD/PELVIS DR PEÑALZOA
[2017-01-14 08:54] LABS: BASOPHIL 0.9 % (0-2.0); EOSINOPHIL 0.9 % (0-4.5); MCHC 34.4 g/dl (32.0-35.9); MEAN CELL VOLUME 87.2 fl (80-96); MEAN PLT VOLUME 9.9 fl (7.5-11.1); NEUTROPHILS 64.3 % (42.8-82.8); PLATELET COUNT 327 K/MM3 (134-434); RDW 11.8 % (11.9-15.9); WHITE BLOOD COUNT 12.6 K/mm3 (4.0-10.8)
[2017-01-14 09:06] LABS: ALBUMIN 3.8 g/dl (3.5-5.0); ALK PHOS 81 U/L (32-92); ANION GAP 12 (8-16); CALCIUM 9.1 mg/dl (8.4-10.2); CO2 23 mmol/L (22-28); CREATININE 1.1 mg/dl (0.6-1.3); GLUCOSE,RANDOM 157 mg/dl (74-106); MAGNESIUM 1.9 mg/dL (1.8-2.4); PHOSPHOROUS 3.7 mg/dl (2.5-4.6); SGOT/AST 27 U/L (10-42); SGPT/ALT 33 U/L (10-40); TOT PROT 7.6 g/dl (6.4-8.3)
[2017-01-14 09:21] LABS: BILIRUBIN,TOTAL 0.4 mg/dl (0.2-1.0)
[2017-01-14] MEDS ORDERED: PT OWN MED DRAWER 7, Y5N ONE (09:21)
[2017-01-14] MEDS ORDERED: REFRIGERATED ANITBIOTICS ONE (09:21)
[2017-01-14] MEDS: CEFTRIAXONE 50 ML IVPB SCH (09:28)
[2017-01-14] MEDS: AZITHROMYCIN IVPB 250 MG in DEXTROSE 5%-WATER - 250 ML IVPB SCH (09:29)
[2017-01-14] MEDS: INSULIN DETEMIR 100 UNITS/ML MDV SQ SCH (09:29)
--- NOTE | 2017-01-14 10:33 | PN ---
Progress Note, Physician History of Present Illness: Feeling better Less cough, now with scant whitish sputum with few blood specks No c/o chest pain/ dyspnea No fever/ chills WBC improved Blood c/s (-) AFB (-) x1 PPD (-) - Current Medication List Current Medications: Active Medications Acetaminophen (Tylenol -) 650 mg PO Q6H PRN PRN Reason: FEVER OR PAIN Last Admin: 01/13/17 23:40 Dose: 650 mg Albuterol/Ipratropium (Duoneb -) 1 amp NEB QIDR COUNT INCLUDES THE [facility] Last Admin: 01/14/17 06:48 Dose: 1 amp Guaifenesin (Robitussin -) 10 ml PO Q6H PRN PRN Reason: COUGH Last Admin: 01/13/17 21:44 Dose: 10 ml Ceftriaxone Sodium (Rocephin 1gm Ivpb (Pre-Docked)) 50 mls @ 100 mls/hr IVPB DAILY COUNT INCLUDES THE [facility] Last Admin: 01/14/17 09:28 Dose: 100 mls/hr Azithromycin 250 mg/ Dextrose 250 mls @ 250 mls/hr IVPB DAILY COUNT INCLUDES THE [facility] Last Admin: 01/14/17 09:29 Dose: 250 mls/hr Insulin Aspart (Novolog Vial Sliding Scale -) 1 vial SQ ACHS COUNT INCLUDES THE [facility] PRN Reason: Protocol Last Admin: 01/14/17 06:54 Dose: Not Given Insulin Aspart (Novolog Vial) 5 units SQ TIDAC COUNT INCLUDES THE [facility] PRN Reason: Protocol Last Admin: 01/14/17 06:53 Dose: 5 units Insulin Detemir (Levemir Vial) 50 units SQ BID COUNT INCLUDES THE [facility] Last Admin: 01/14/17 09:29 Dose: 50 units - Objective Vital Signs: Vital Signs Temperature 98.5 F 01/14/17 06:00 Pulse Rate 72 01/14/17 06:00 Respiratory Rate 17 01/14/17 06:00 Blood Pressure 132/66 01/14/17 06:00 O2 Sat by Pulse Oximetry (%) 100 01/14/17 06:25 Constitutional: Yes: No Distress Eyes: Yes: Conjunctiva Clear Cardiovascular: Yes: S1, S2 Respiratory: Yes: CTA Bilaterally Gastrointestinal: Yes: Normal Bowel Sounds, Soft. No: Tenderness Edema: No Labs: CBC, BMP 01/14/17 08:20 01/14/17 08:20 INR, PTT INR 1.17 (0.82-1.09) 01/11/17 18:35 Assessment/Plan Bibasilar pneumonia clinically improved Diabetes mellitus on Embrel Await sputum c/s AFB HIV test negative PPD (-) Continue empiric zithromax/ ceftriaxone Obtain CT A/P with contrast (R/O occult GI malignancy/ adenopathy)
[2017-01-14] MEDS ORDERED: INSULIN (NOVOLOG) ASPART 100 UNITS/ML 10ML VIAL ONE (12:13)
--- NOTE | 2017-01-14 12:35 | PN ---
Physical Exam: SUBJECTIVE: Patient seen and examined OBJECTIVE: Vital Signs Period Temp Pulse Resp BP Sys/Franco Pulse Ox Last 24 Hr 98.0 F-98.8 F 66-82 17-18 121-136/63-68 97-100 GENERAL: The patient is awake, alert, and fully oriented, in no acute distress. HEAD: Normal with no signs of trauma. EYES: PERRL, extraocular movements intact, sclera anicteric, conjunctiva clear. No ptosis. ENT: Ears normal, nares patent, oropharynx clear without exudates, moist mucous membranes. NECK: Trachea midline, full range of motion, supple. LUNGS: Breath sounds equal, clear to auscultation bilaterally, no wheezes, no crackles, no accessory muscle use. HEART: Regular rate and rhythm, S1, S2 without murmur, rub or gallop. ABDOMEN: Soft, nontender, nondistended, normoactive bowel sounds, no guarding, no rebound, no hepatosplenomegaly, no masses. EXTREMITIES: 2+ pulses, warm, well-perfused, no edema. NEUROLOGICAL: Cranial nerves II through XII grossly intact. Normal speech, gait not observed. PSYCH: Normal mood, normal affect. SKIN: Warm, dry, normal turgor, no rashes or lesions noted Laboratory Results - last 24 hr 01/13/17 01/13/17 01/13/17 11:30 17:17 21:43 WBC RBC Hgb Hct MCV MCHC RDW Plt Count MPV Neutrophils % Lymphocytes % Monocytes % Eosinophils % Basophils % Sodium Potassium Chloride Carbon Dioxide Anion Gap BUN Creatinine Creat Clearance w eGFR POC Glucometer 196 241 Random Glucose Calcium Phosphorus Magnesium Total Bilirubin AST ALT Alkaline Phosphatase Total Protein Albumin HIV 1&2 Antibody Screen Negative HIV P24 Antigen Negative 01/14/17 01/14/17 01/14/17 06:50 08:20 08:20 WBC 12.6 H RBC 5.26 Hgb 15.8 Hct 45.8 MCV 87.2 MCHC 34.4 RDW 11.8 L Plt Count 327 D MPV 9.9 Neutrophils % 64.3 Lymphocytes % 23.9 D Monocytes % 10.0 Eosinophils % 0.9 Basophils % 0.9 D Sodium 140 Potassium 3.9 Chloride 105 Carbon Dioxide 23 Anion Gap 12 BUN 19 H D Creatinine 1.1 Creat Clearance w eGFR > 60 POC Glucometer 142 Random Glucose 157 H D Calcium 9.1 Phosphorus 3.7 Magnesium 1.9 Total Bilirubin 0.4 AST 27 D ALT 33 Alkaline Phosphatase 81 Total Protein 7.6 Albumin 3.8 HIV 1&2 Antibody Screen HIV P24 Antigen 01/14/17 12:04 WBC RBC Hgb Hct MCV MCHC RDW Plt Count MPV Neutrophils % Lymphocytes % Monocytes % Eosinophils % Basophils % Sodium Potassium Chloride Carbon Dioxide Anion Gap BUN Creatinine Creat Clearance w eGFR POC Glucometer 325 Random Glucose Calcium Phosphorus Magnesium Total Bilirubin AST ALT Alkaline Phosphatase Total Protein Albumin HIV 1&2 Antibody Screen HIV P24 Antigen Active Medications Generic Name Dose Route Start Last Admin Trade Name Freq PRN Reason Stop Dose Admin Acetaminophen 650 mg 01/11/17 21:07 01/13/17 23:40 Tylenol - PO 650 mg Q6H PRN Administration FEVER OR PAIN Albuterol/Ipratropium 1 amp 01/13/17 10:30 01/14/17 11:41 Duoneb - NEB 1 amp QIDR LAINE Administration Guaifenesin 10 ml 01/12/17 00:18 01/13/17 21:44 Robitussin - PO 10 ml Q6H PRN Administration COUGH Ceftriaxone Sodium 50 mls @ 100 mls/hr 01/12/17 10:00 01/14/17 09:28 Rocephin 1gm Ivpb (Pre-Docked) IVPB 100 mls/hr DAILY LAINE Administration Azithromycin 250 mg/ Dextrose 250 mls @ 250 mls/hr 01/13/17 10:00 01/14/17 09: 29 IVPB 250 mls/hr DAILY LAINE Administration Insulin Aspart 1 vial 01/11/17 22:00 01/14/17 12:24 Novolog Vial Sliding Scale - SQ 8 units ACHS LAINE Administration Protocol Insulin Aspart 5 units 01/12/17 16:30 01/14/17 12:25 Novolog Vial SQ 5 units TIDAC [facility] Administration Protocol Insulin Detemir 50 units 01/12/17 22:00 01/14/17 09:29 Levemir Vial SQ 50 units BID LAINE Administration ASSESSMENT/PLAN:
--- NOTE | 2017-01-14 14:26 | DS ---
Physical Exam: SUBJECTIVE: Patient seen and examined OBJECTIVE: Vital Signs Period Temp Pulse Resp BP Sys/Franco Pulse Ox Last 24 Hr 98.0 F-98.8 F 66-82 17-18 121-136/63-68 97-100 PHYSICAL EXAM GENERAL: The patient is awake, alert, and fully oriented, in no acute distress. HEAD: Normal with no signs of trauma. EYES: PERRL, extraocular movements intact, sclera anicteric, conjunctiva clear. ENT: Ears normal, nares patent, oropharynx clear without exudates, moist mucous membranes. NECK: Trachea midline, full range of motion, supple. LUNGS: Breath sounds equal, clear to auscultation bilaterally, no wheezes, no crackles, no accessory muscle use. HEART: Regular rate and rhythm, S1, S2 without murmur, rub or gallop. ABDOMEN: Soft, nontender, nondistended, normoactive bowel sounds, no guarding, no rebound, no hepatosplenomegaly, no masses. EXTREMITIES: 2+ pulses, warm, well-perfused, no edema. NEUROLOGICAL: Cranial nerves II through XII grossly intact. Normal speech, gait not observed. PSYCH: Normal mood, normal affect. SKIN: Warm, dry, normal turgor, no rashes or lesions noted. LABS Laboratory Results - last 24 hr 01/13/17 01/13/17 01/14/17 17:17 21:43 06:50 WBC RBC Hgb Hct MCV MCHC RDW Plt Count MPV Neutrophils % Lymphocytes % Monocytes % Eosinophils % Basophils % Sodium Potassium Chloride Carbon Dioxide Anion Gap BUN Creatinine Creat Clearance w eGFR POC Glucometer 196 241 142 Random Glucose Calcium Phosphorus Magnesium Total Bilirubin AST ALT Alkaline Phosphatase Total Protein Albumin 01/14/17 01/14/17 01/14/17 08:20 08:20 12:04 WBC 12.6 H RBC 5.26 Hgb 15.8 Hct 45.8 MCV 87.2 MCHC 34.4 RDW 11.8 L Plt Count 327 D MPV 9.9 Neutrophils % 64.3 Lymphocytes % 23.9 D Monocytes % 10.0 Eosinophils % 0.9 Basophils % 0.9 D Sodium 140 Potassium 3.9 Chloride 105 Carbon Dioxide 23 Anion Gap 12 BUN 19 H D Creatinine 1.1 Creat Clearance w eGFR > 60 POC Glucometer 325 Random Glucose 157 H D Calcium 9.1 Phosphorus 3.7 Magnesium 1.9 Total Bilirubin 0.4 AST 27 D ALT 33 Alkaline Phosphatase 81 Total Protein 7.6 Albumin 3.8 HOSPITAL COURSE: Date of Admission:01/11/17 Date of Discharge: 01/14/17 Minutes to complete discharge: 45 Discharge Summary Reason For Visit: COUGH, SEPSIS & PNEUMONIA Current Active Problems Cough (Acute) Hemoptysis (Acute) Night sweats (Acute) Pneumonia (Acute) Rheumatoid arthritis (Acute) Sepsis (Acute) Weight loss, unintentional (Acute) Condition: Stable - Instructions Referrals: Venessa Feldman [Primary Care Provider] - - Home Medications Comprehensive Discharge Medication List: Ambulatory Orders Insulin Glulisine [Apidra] unit SQ TID 09/24/14 Insulin Glargine,Hum.rec.anlog [Lantus (10mL VIAL) -] 50 units SQ BID 08/28/15 Etanercept [Enbrel] 50 mg SQ WEEKLY 09/12/15
[2017-01-14 19:43] LABS: THYROID STIMULATING HORMONE 1.72 uIU/ml (0.358-3.74)
[2017-02-10 12:31] LABS: HANTAVIRUS IGG <2.0; HANTAVIRUS IGM <2.0
== END 2017-01-14 16:05 | disposition home or self-care (01) | DRG 720 ==
LOC: FER 18:00 → FM/S 20:13
PROVIDERS: ADMIT Internal Medicine; ATTEND Nurse Practitioner Family
DX: A41.9 Sepsis, unspecified organism (principal); M06.80 Other specified rheumatoid arthritis, unspecified site; J18.9 Pneumonia, unspecified organism; R63.4 Abnormal weight loss; Z68.28 Body mass index [BMI] 28.0-28.9, adult; R05 Cough; R61 Generalized hyperhidrosis; E11.65 Type 2 diabetes mellitus with hyperglycemia; Z79.4 Long term (current) use of insulin
CPT/HCPCS: 36415; 71020-TC; 71260-TC; 73610-TC-RT; 73630-TC-RT; 74178-TC; 80048; 80053; 81003; 82947; 83036; 83605; 83615; 83735; 84100; 84443; 85025; 85610; 85730; 86480; 87040; 87070; 87116; 87205; 87206; 87254; 87389; 87430; 87804; 87899; 93005; 94010; 94640; 99285-25

== ENCOUNTER 2017-09-12 09:33 | Emergency (ER) | payer OTHER ==
[2017-09-12 09:41] VITALS: TEMP 97.5; BMI 28.1
[2017-09-12] MEDS ORDERED: SODIUM CHLORIDE 1,000 ML IV STA ×2 (09:42→11:12)
[2017-09-12] MEDS ORDERED: ONDANSETRON 4 MG/2 ML VIAL IVPB ONE ×2 (09:42→11:12)
[2017-09-12] MEDS ORDERED: PANTOPRAZOLE SODIUM 40 MG in SODIUM CHLORIDE 100 ML IVPB ONE (09:43)
--- NOTE | 2017-09-12 09:43 | PDOC ---
History of Present Illness - General Chief Complaint: Vomiting/Diarrhea Stated Complaint: N/V/D Time Seen by Provider: 09/12/17 09:41 - History of Present Illness Initial Comments: 09/12/17 09:52 Chief complaint: Nausea vomiting and diarrhea History of present illness: Nausea, vomiting, and diarrhea since 4 PM yesterday. Last episodes around 4 AM today. Accompanying crampy abdominal pain. Review of systems: No fever/chills, URI symptoms, sore throat, cough, chest pain , shortness of breath, visual or focal neurologic symptoms, unsteadiness of gait. 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 Denies tobacco alcohol or nonprescription drugs Family history: Reviewed and noncontributory Physical exam: Alert and oriented well-developed well-nourished mild distress secondary to nausea and crampy abdominal pain, which is intermittent Afebrile, vital signs normal except for mildly elevated blood pressure No pallor or icterus. PERRLA, fundi benign, ENT clear, mucous membranes moist Neck supple without bruit mass or nodes Chest clear CV regular without murmur rub or gallop Abdomen nondistended with normal bowel sounds. There is mild tenderness diffusely without localization to deep palpation, no guarding or rebound. No CVAT Extremities no CCE Neurological intact Skin clear, no rash, adequate turgor and wet mucous membranes Impression: Diabetic with symptoms of gastroenteritis. Rule out hyperglycemia or electrolyte abnormality Plan: Intravenous fluids, CBC and chemistries, anti-emetic and observation. Further diagnostic studies depending on results and response to therapy Past History - Past Medical History Allergies/Adverse Reactions: Allergies Allergy/AdvReac Type Severity Reaction Status Date / Time No Known Allergies Allergy Verified 01/11/17 18:03 Home Medications: Ambulatory Orders Insulin Glargine,Hum.rec.anlog [Lantus (10mL VIAL) -] 50 units SQ BID 08/28/15 Etanercept [Enbrel] 50 mg SQ WEEKLY 09/12/15 Acetaminophen [Tylenol .Regular Strength -] 650 mg PO Q6H PRN #0 tablet Insulin Aspart [Novolog Flexpen] 0 unit SQ AC 09/12/17 Ondansetron [Zofran Odt -] 4 - 8 mg SL TID PRN #15 od.tablet 09/12/17 Anemia: No Asthma: No Cancer: No Cardiac Disorders: No CVA: No COPD: No CHF: No Dementia: No Diabetes: Yes GI Disorders: No Disorders: No HTN: No Hypercholesterolemia: No Liver Disease: No Seizures: No Thyroid Disease: No Other medical history: RHEUMATOID ARTHRITIS, MUSCLE SPASM - Surgical History Abdominal Surgery: No Appendectomy: No Cardiac Surgery: No Cholecystectomy: No Lung Surgery: No Neurologic Surgery: No Orthopedic Surgery: No - Immunization History Immunization Up to Date: Yes - Suicide/Smoking/Psychosocial Hx Smoking Status: No Smoking History: Never smoked Have you smoked in the past 12 months: No Number of Cigarettes Smoked Daily: 0 Hx Alcohol Use: Yes (OCCASIONAL ONLY) Drug/Substance Use Hx: No Substance Use Type: None Hx Substance Use Treatment: No *Physical Exam - Vital Signs Last Vital Signs Temp Pulse Resp BP Pulse Ox 97.5 F L 98 H 16 155/97 100 09/12/17 09:34 09/12/17 09:34 09/12/17 09:34 09/12/17 09:34 09/12/17 09:34 ED Treatment Course - LABORATORY CBC & Chemistry Diagram: 09/12/17 09:55 09/12/17 09:55 Medical Decision Making - Medical Decision Making 09/12/17 14:32 Glucose was over 400 initially, improved to the mid 200s after single dose of subcutaneous regular insulin 10 units. Laboratories reviewed and without significant abnormalities. Patient much improved after therapy with fluids, Protonix, and Zofran. Pain resolved. No further nausea vomiting or diarrhea. Abdomen soft and nontender. Continued on Zofran when necessary. 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 Return to ER if symptoms recur, especially prolonged vomiting or abdominal pain. Otherwise follow-up with primary physician. Patient fully ambulatory and in no pain or other discomfort upon discharge with his to follow-up as directed *DC/Admit/Observation/Transfer Diagnosis at time of Disposition: Viral gastroenteritis - Discharge Dispostion Disposition: HOME Condition at time of disposition: Improved Admit: No - Prescriptions Prescriptions: Ondansetron [Zofran Odt -] 4 - 8 mg SL TID PRN #15 od.tablet PRN Reason: Nausea And/Or Vomiting - Referrals Referrals: Venessa Feldman [Primary Care Provider] - 24 hours - Patient Instructions Printed Discharge Instructions: DI for Viral Gastroenteritis -- Adult - Post Discharge Activity Forms/Work/School Notes: Back to Work
[2017-09-12 11:06] LABS: ALBUMIN 4.2 g/dl (3.5-5.0); ALK PHOS 77 U/L (32-92); ANION GAP 10 (8-16); BILIRUBIN,TOTAL 0.6 mg/dl (0.2-1.0); BLOOD UREA NITROGEN 21 mg/dl (7-18); CALCIUM 9.3 mg/dl (8.4-10.2); CHLORIDE 94 mmol/L (98-107); CO2 26 mmol/L (22-28); CREATININE 1.2 mg/dl (0.6-1.3); POTASSIUM 4.3 mmol/L (3.5-5.1); SGOT/AST 26 U/L (10-42); SGPT/ALT 43 U/L (10-40); SODIUM 130 mmol/L (136-145); TOT PROT 7.1 g/dl (6.4-8.3)
[2017-09-12 11:11] LABS: EOS % 0.6 % (0-4.5); HEMATOCRIT 47.4 % (35.4-49); HEMOGLOBIN 15.6 GM/dl (11.7-16.9); LYMPH % 13.4 % (8-40); MCH 27.9 pg (25.7-33.7); MCHC 32.9 g/dl (32.0-35.9); MEAN CELL VOLUME 84.9 fl (80-96); MEAN PLT VOLUME 11.5 fl (7.5-11.1); MONO % 11.8 % (3.8-10.2); NEUT % 74.2 % (42.8-82.8); PLATELET COUNT 161 K/MM3 (134-434); RBC 5.58 M/mm3 (4.00-5.60); RDW 13.8 % (11.9-15.9); WHITE BLOOD COUNT 6.9 K/mm3 (4.0-10.8)
[2017-09-12] MEDS ORDERED: ONDANSETRON 4 MG/2 ML VIAL ONE (11:22)
[2017-09-12 11:32] LABS: GLUCOSE,RANDOM 412 mg/dl (74-106)
[2017-09-12] MEDS ORDERED: INSULIN REGULAR HUMAN 100 UNITS/ML *VIAL SQ ONE (12:11)
[2017-09-12] MEDS ORDERED: INSULIN REGULAR HUMAN 100 UNITS/ML *VIAL ONE (12:21)
[2017-09-12] MEDS ORDERED: HEMOQUE TEST 1 EACH EACH ONE ×2 (13:42→13:49)
[2017-09-12 14:07] VITALS: BP 130/75; PULSE 76
[2017-09-12 14:17] LABS: URINE APPEARANCE Clear; URINE BILIRUBIN Negative (NEGATIVE); URINE BLOOD Negative (NEGATIVE); URINE COLOR YELLOW; URINE GLUCOSE (UA) 2+ (NEGATIVE); URINE KETONE 1+ (NEGATIVE); URINE NITRITE Negative (NEGATIVE); URINE PROTEIN Negative (NEGATIVE); URINE UROBILINOGEN 0.2 (0.2-1.0)
== END 2017-09-12 14:10 | disposition home or self-care (01) ==
LOC: FER 09:33
PROC: 3E013VG Introduction of Insulin into Subcutaneous Tissue, Percutaneous Approach (ICD-10-PCS; principal; 2017-09-12)
PROC: 3E033GC Introduction of Other Therapeutic Substance into Peripheral Vein, Percutaneous Approach (ICD-10-PCS; 2017-09-12)
PROC: 3E0337Z Introduction of Electrolytic and Water Balance Substance into Peripheral Vein, Percutaneous Approach (ICD-10-PCS; 2017-09-12)
DX: A08.4 Viral intestinal infection, unspecified (principal); B97.89 Other viral agents as the cause of diseases classified elsewhere
CPT/HCPCS: 36415; 80053; 81003; 85025; 96361; 96365; 96372; 96375; 96376; 99283-25

== ENCOUNTER 2017-10-03 09:05 | Emergency (ER) | payer OTHER ==
[2017-10-03 09:21] VITALS: BP 157/77; PULSE 65; TEMP 97.9; BMI 30.4
[2017-10-03] MEDS ORDERED: KETOROLAC TROMETHAMINE 60 MG/2 ML VIAL IM ONE (09:27)
--- NOTE | 2017-10-03 09:27 | PDOC ---
History of Present Illness - General Chief Complaint: Pain Stated Complaint: RT ARM BURNING, ACHING, LOSING STRENGTH Time Seen by Provider: 10/03/17 09:25 - History of Present Illness Initial Comments: 10/03/17 09:35 Chief complaint: Right shoulder pain History of present illness: Woke up at 4 AM with pain in the right shoulder and arm, described as a burning extending from the shoulder to the fingertips. There is loss of strength and inability to abduct the arm. He was lifting weights last evening, but did not sustain any noticeable injury Review of systems: As noted above, pain, burning, and weakness of the right arm. No appreciable neck pain. No fever/chills, URI symptoms, sore throat, cough , chest pain, shortness of breath, abdominal pain, nausea, vomiting, diarrhea, visual or other focal neurologic symptoms, unsteadiness of gait Past medical history: Ankylosing spondylitis in remission. 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 Social/family history reviewed and noncontributory. Denies steroids, nonprescription drugs, tobacco or alcohol Physical exam: Alert and oriented well-developed well-nourished no acute distress at rest. Bodybuilding physique Afebrile, vital signs normal HEENT clear Neck without point tenderness or deformity, good range of motion without pain Lungs clear to P&A. Full breath sounds throughout. No chest wall rib cage tenderness deformity CV regular without murmur rub or gallop pulses full and symmetric no JVD or edema no bruits Abdomen soft nontender without mass or organomegaly Neurological C2 to 12 intact. Strength full and symmetric except for the right arm, there is weakness of the muscles, possibly secondary to pain, and inability to abduct, probably also due to pain Musculoskeletal: There is no sign of inflammation of the shoulder joint, no warmth, effusion, or swelling. There is pronounced muscle hypertrophy. Pulses are full to the extremity. As noted above, generalized weakness of the right arm. Inability to abduct. Shooting, burning pain is described to the fingertips , though there is no demonstrable sensory deficit Impression: Neuritis, radiculopathy, rule out inadvertent shoulder dislocation or cervical spine injury Plan: X-ray, analgesics, and orthopedic referral. 10/03/17 10:59 Past History - Past Medical History Allergies/Adverse Reactions: Allergies Allergy/AdvReac Type Severity Reaction Status Date / Time No Known Allergies Allergy Verified 10/03/17 09:07 Home Medications: Ambulatory Orders Insulin Glargine,Hum.rec.anlog [Lantus (10mL VIAL) -] 50 units SQ BID 08/28/15 Etanercept [Enbrel] 50 mg SQ WEEKLY 09/12/15 Insulin Aspart [Novolog Flexpen] 0 unit SQ AC 09/12/17 Naproxen Sodium [Aleve] 220 mg PO ASDIR PRN 10/03/17 Anemia: No Asthma: No Cancer: No Cardiac Disorders: No CVA: No COPD: No CHF: No Dementia: No Diabetes: Yes GI Disorders: No Disorders: No HTN: No Hypercholesterolemia: No Liver Disease: No Seizures: No Thyroid Disease: No Other medical history: ANKYLOSING SPONDYLITIS - Surgical History Abdominal Surgery: No Appendectomy: No Cardiac Surgery: No Cholecystectomy: No Lung Surgery: No Neurologic Surgery: No Orthopedic Surgery: No - Immunization History Immunization Up to Date: Yes - Suicide/Smoking/Psychosocial Hx Smoking Status: No Smoking History: Never smoked Have you smoked in the past 12 months: No Number of Cigarettes Smoked Daily: 0 Hx Alcohol Use: ("rarely") Drug/Substance Use Hx: No Substance Use Type: None Hx Substance Use Treatment: No *Physical Exam - Vital Signs Last Vital Signs Temp Pulse Resp BP Pulse Ox 97.9 F 65 18 157/77 100 10/03/17 09:05 10/03/17 09:05 10/03/17 09:05 10/03/17 09:05 10/03/17 09:05 Medical Decision Making - Medical Decision Making 10/03/17 10:58 X-rays reveal straightening of the cervical spine, probably due to spasm, but the bones and disc spaces are normal. No sign of fracture or subluxation. Shoulder x-ray is normal. Probable radiculopathy due to muscle strain, nerve impingement. Rest and orthopedic follow-up *DC/Admit/Observation/Transfer Diagnosis at time of Disposition: Radiculopathy affecting upper extremity - Discharge Dispostion Disposition: HOME Condition at time of disposition: Stable Admit: No - Referrals Referrals: Hal Huff MD [Staff Physician] - 1 week - Patient Instructions Printed Discharge Instructions: DI for Cervical Radiculopathy Additional Instructions: Rest. Sling. Ice. Motrin 800 mg 3 times daily for 1 week. See orthopedist if symptoms persist. Further evaluation and treatment may be necessary. - Post Discharge Activity Forms/Work/School Notes: Back to Work
[2017-10-03] MEDS ORDERED: KETOROLAC TROMETHAMINE 60 MG/2 ML VIAL ONE (09:44)
== END 2017-10-03 11:13 | disposition home or self-care (01) ==
LOC: FER 09:05
PROC: 3E0233Z Introduction of Anti-inflammatory into Muscle, Percutaneous Approach (ICD-10-PCS; principal; 2017-10-03)
DX: M54.10 Radiculopathy, site unspecified (principal); E11.9 Type 2 diabetes mellitus without complications; M45.9 Ankylosing spondylitis of unspecified sites in spine
CPT/HCPCS: 72050-TC; 73030-TC-RT; 96372; 99283-25

== ENCOUNTER 2018-03-09 10:50 | Emergency (ER) | payer OTHER ==
[2018-03-09 11:01] VITALS: BP 123/79; PULSE 74; TEMP 98.9; BMI 31.1
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
== END 2018-03-09 11:55 | disposition home or self-care (01) ==
LOC: FER 10:50
DX: M20.012 Mallet finger of left finger(s) (principal); X58.XXXA Exposure to other specified factors, initial encounter; Y93.89 Activity, other specified; Y92.89 Other specified places as the place of occurrence of the external cause; Y99.0 Civilian activity done for income or pay; E11.9 Type 2 diabetes mellitus without complications
CPT/HCPCS: 73140-TC-LT-FY; 99283-25

== ENCOUNTER 2019-11-26 23:08 | Emergency (ER) | payer OTHER ==
[2019-11-26 23:15] VITALS: BMI 31.1
[2019-11-26 23:38] VITALS: BP 142/77; PULSE 80; TEMP 98.5
[2019-11-27] MEDS ORDERED: KETOROLAC TROMETHAMINE 60 MG/2 ML VIAL IM ONE (00:06)
--- NOTE | 2019-11-27 00:07 | PDOC ---
History of Present Illness - General Chief Complaint: Pain, Acute Stated Complaint: LT CALF PAIN Time Seen by Provider: 11/26/19 23:10 - History of Present Illness Initial Comments: This 38-year-old man with a history of type I DM and ankylosing spondylitis presents with sudden onset of left calf pain while playing basketball few hours prior to presentation. Patient states that as he was playing, he had sudden onset of discomfort in the posterior left lower leg, centered in the upper and mid calf muscle. The patient describes this as "like (he) was hit" in that area of the calf. After that, the patient was unable to fully extend his knee or flex ankle without feeling marked pain. Patient was able to ambulate only with assistance. He denies pain in the area around his heel/ankle. No previous history of Achilles tendinopathy. No previous history of any significant tendon or muscle tears. Patient thinks he may be somewhat dehydrated related to poor blood sugar control (he believes that his most recent supply of insulin was "spoiled") Patient has not taken his Enbrel in a few weeks because of recent coronavirus outbreak: Wants to avoid being immunocompromised while on the Enbrel. No known allergies Meds as noted Non-smoker/no alcohol or other recreational drug use Patient has used [facility] in the past Past History - Past Medical History Allergies/Adverse Reactions: Allergies Allergy/AdvReac Type Severity Reaction Status Date / Time No Known Allergies Allergy Verified 03/09/18 10:55 Home Medications: Ambulatory Orders Insulin Glargine,Hum.rec.anlog [Lantus (10mL VIAL) -] 50 units SQ BID 08/28/15 Etanercept [Enbrel] 50 mg SQ WEEKLY 09/12/15 Insulin Aspart [Novolog Flexpen] 0 unit SQ AC 09/12/17 traMADol HCL [Ultram -] 50 mg PO Q8H PRN #15 tablet MDD 3 tabs 11/27/19 Anemia: No Asthma: No Cancer: No Cardiac Disorders: No CVA: No COPD: No CHF: No Dementia: No Diabetes: Yes GI Disorders: No Disorders: No HTN: No Hypercholesterolemia: No Liver Disease: No Seizures: No Thyroid Disease: No - Surgical History Abdominal Surgery: No Appendectomy: No Cardiac Surgery: No Cholecystectomy: No Lung Surgery: No Neurologic Surgery: No Orthopedic Surgery: No - Immunization History Immunization Up to Date: Yes - Psycho Social/Smoking Cessation Hx Smoking Status: No Smoking History: Never smoked Have you smoked in the past 12 months: No Number of Cigarettes Smoked Daily: 0 Hx Alcohol Use: No Drug/Substance Use Hx: No Substance Use Type: None Hx Substance Use Treatment: No Review of Systems - Review of Systems Able to Perform ROS?: Yes Comments:: 12 point review of systems is negative except for what is noted in the history of present illness *Physical Exam - Vital Signs Last Vital Signs Temp Pulse Resp BP Pulse Ox 98.5 F 80 16 142/77 99 11/26/19 23:09 11/26/19 23:09 11/26/19 23:09 11/26/19 23:09 11/26/19 23:09 - Physical Exam GENERAL: Adult male, moderate distress secondary to left calf pain HEAD: Normal with no signs of trauma. EYES: PERRLA, EOMI, sclera anicteric, conjunctiva clear. EXTREMITIES: Left lower extremity: Mildly edematous, markedly tender left calf; no palpable cords or external lesions Pain exacerbated by knee extension/ankle dorsi or plantar flexion No step-offs or tenderness of Achilles tendon at insertion Negative Domingo test Distal extremity warm and dry without edema, tenderness or deformity Remainder the extremity exam is normal NEUROLOGICAL: Cranial nerves II through XII grossly intact. Normal speech. No focal neurological deficits. SKIN: Warm, Dry, normal turgor, no rashes or lesions noted. Medical Decision Making - Medical Decision Making This 38-year-old man presents with sudden onset of left calf pain while playing basketball; since then, he has had pain with movement of the left lower leg. No previous history of Achilles tendinopathy or gastrocnemius strain. Exam as noted above. Domingo test is negative and there is no Achilles tendon step-off or tenderness at the insertion Clinical presentation most consistent with left gastrocnemius strain/partial rupture. Using Ortho-Glass material, lower leg splint fashioned and attached using Codey wraps. Neurovascular functioning intact after splint applied. Patient was fitted with crutches and crutch walking instruction given. Patient should elevate and ice the gastrocnemius muscle is much as possible over the next 2 days. He has been seen by [facility] in the past; the referral information for this group has been given to the patient. He should contact the office on November 28 and arrange follow-up within the following 48 hours. Meanwhile, the patient should keep splint in place and use crutches as needed for ambulation. The patient states that because of underlying medical problems, he generally avoids nonsteroidal anti-inflammatory medications and acetaminophen. However, he is been given Toradol IM in the past for orthopedic injuries without side effects and with effectiveness for his pain. Therefore, Toradol 60 mg IM given. He states that he has had some effectiveness with tramadol 50 mg for previous episodes of pain. Tramadol 50 mg up to 3 times a day as needed for moderate to severe pain (#15) transmitted to his pharmacy. Patient should also follow-up with his general medical doctor regarding his poor blood sugar control. He should return to the emergency room if he develops more severe pain. Discharge - Discharge Information Problems reviewed: Yes Clinical Impression/Diagnosis: Strain of gastrocnemius muscle of left lower extremity Qualifiers: Encounter type: initial encounter Qualified Code(s): S86.112A - Strain of other muscle(s) and tendon(s) of posterior muscle group at lower leg level, left leg, initial encounter Condition: Stable Disposition: HOME - Additional Discharge Information Prescriptions: traMADol HCL [Ultram -] 50 mg PO Q8H PRN #15 tablet MDD 3 tabs PRN Reason: Pain - Follow up/Referral Referrals: Hal Huff MD [Staff Physician] - 3 days - Patient Discharge Instructions Patient Printed Discharge Instructions: Calf Muscle Strain Additional Instructions: Keep splint in place Elevate/ice to left calf muscle as much as possible over the next 48 hours Crutches for ambulation until seen by orthopedist Tramadol 50 mg up to 3 times a day as needed for pain Call orthopedic group ([facility]) on November 28 to arrange follow-up within 48 hours Return to ER if you have worsening pain - Post Discharge Activity
[2019-11-27] MEDS ORDERED: KETOROLAC TROMETHAMINE 60 MG/2 ML VIAL ONE (00:10)
== END 2019-11-27 00:19 | disposition home or self-care (01) ==
LOC: FER 23:08
PROC: 3E0233Z Introduction of Anti-inflammatory into Muscle, Percutaneous Approach (ICD-10-PCS; principal; 2019-11-26)
DX: S86.112A Strain of other muscle(s) and tendon(s) of posterior muscle group at lower leg level, left leg, initial encounter (principal); E10.9 Type 1 diabetes mellitus without complications; Z79.4 Long term (current) use of insulin; M45.9 Ankylosing spondylitis of unspecified sites in spine
CPT/HCPCS: 99284-25

== ENCOUNTER 2021-07-04 13:24 | Emergency (ER) | payer OTHER ==
[2021-07-04] MEDS ORDERED: traMADol HCL 50 MG TABLET PO ONE (13:55)
[2021-07-04] MEDS ORDERED: traMADol HCL 50 MG TABLET ONE (14:02)
[2021-07-04 14:04] VITALS: BP 147/96; PULSE 97; TEMP 99.5; BMI 29.6
== END 2021-07-04 15:10 | disposition home or self-care (01) ==
LOC: FER 13:24
DX: S49.91XA Unspecified injury of right shoulder and upper arm, initial encounter (principal); V43.52XA Car driver injured in collision with other type car in traffic accident, initial encounter
CPT/HCPCS: 71046-TC-FY; 73030-TC-RT-FY; 73070-TC-RT-FY; 99285-25

== ENCOUNTER → 2021-09-27 | Day surgery (SDC) | payer OTHER ==
[2021-09-19 11:36] VITALS: BMI 30.4
[~2021-09-27] MED LIST: ACETAMINOPHEN 325 MG TABLET (FP) PO PRN; DEXAMETHASONE SOD PHOSPHATE 4 MG/1 ML VIAL ONE; EPINEPHrine 1:1,000 1 MG/1 ML - 30ML VIAL (INJECTION) ONE; LACTATED RINGERS SOLUTION 1,000 ML IV SCH; MIDAZOLAM HCL 2 MG/2 ML SINGLE DOSE VIAL ONE; ONDANSETRON 4 MG/2 ML VIAL IVPUSH PRN; ONDANSETRON 4 MG/2 ML VIAL ONE; PROPOFOL 20 ML ONE; ROPIVACAINE HCL/PF 100 MG/20 ML VIAL ONE; SUCCINYLCHOLINE CHLORIDE 200 MG/10 ML SYRINGE ONE; TRANEXAMIC ACID 1000 MG/10 ML VIAL ONE; ceFAZolin SODIUM 1 GM VIAL ONE; oxyCODONE HCL 5 MG TABLET PO PRN
[2021-09-27 15:06] VITALS: TEMP 98.2
[2021-09-27 16:02] VITALS: BP 142/82; PULSE 85
== END | disposition home or self-care (01) ==
LOC: FASU 07:28
PROVIDERS: ATTEND Orthopaedic Surgery Sports Medicine
PROC: 0RNJ4ZZ Release Right Shoulder Joint, Percutaneous Endoscopic Approach (ICD-10-PCS; 2021-09-27)
PROC: 0LQ14ZZ Repair Right Shoulder Tendon, Percutaneous Endoscopic Approach (ICD-10-PCS; principal; 2021-09-27 12:22)
DX: M75.101 Unspecified rotator cuff tear or rupture of right shoulder, not specified as traumatic (principal); M75.41 Impingement syndrome of right shoulder
CPT/HCPCS: 82962; 94760

== ENCOUNTER 2022-06-15 06:51 | Inpatient (IN) | payer OTHER ==
[2022-06-15] MEDS ORDERED: ONDANSETRON 4 MG/2 ML VIAL IVPB ONE (07:15)
[2022-06-15] MEDS ORDERED: SODIUM CHLORIDE 1,000 ML IV ONE ×2 (07:15→10:06)
[2022-06-15] MEDS ORDERED: morphine CARPU-JECT 4 MG/1 ML DISP.SYRIN IVPUSH ONE ×3 (07:16→13:23)
[2022-06-15] MEDS ORDERED: ACETAMINOPHEN 1000 MG/100 ML BAG IVPB ONE (07:17)
[2022-06-15] MEDS ORDERED: ONDANSETRON 4 MG/2 ML VIAL ONE (07:20)
[2022-06-15] MEDS ORDERED: morphine SULFATE 4 MG/ML VIAL ONE ×3 (07:20→13:11)
[2022-06-15] MEDS ORDERED: ACETAMINOPHEN INJECTION 100 ML IVPB ONE (07:20)
[2022-06-15 08:59] LABS: ALBUMIN 3.9 g/dl (3.4-5.0); CALCIUM 9.4 mg/dl (8.5-10); CREATININE 1.6 mg/dl (0.55-1.3); TOT PROT 7.4 g/dl (6.4-8.2)
[2022-06-15 09:10] LABS: HEMATOCRIT 49.6 % (35.4-49); HEMOGLOBIN 17.5 G/dL (11.7-16.9); MCH 30.7 pg (25.7-33.7); MCHC 35.2 g/dl (32.0-35.9); MEAN CELL VOLUME 87.1 fl (80-96); MEAN PLT VOLUME 9.3 fl (7.5-11.1); PLATELET COUNT 248.7 10^3/uL (134-434); RBC 5.69 10^6/uL (4.00-5.60); RDW 13.8 % (11.9-15.9); WHITE BLOOD COUNT 16.8 10^3/uL (4.0-10.8)
[2022-06-15] MEDS ORDERED: CEFTRIAXONE 1 GM in DEXTROSE 5%-WATER - 50 ML IVPB ONE (09:21)
[2022-06-15] MEDS ORDERED: cefTRIAXone SODIUM 1 GM VIAL ONE (09:25)
[2022-06-15] MEDS ORDERED: INSULIN REGULAR HUMAN 100 UNITS/ML *VIAL SQ ONE (09:38)
[2022-06-15] MEDS ORDERED: INSULIN REGULAR HUMAN 100 UNITS/ML *VIAL ONE (09:42)
[2022-06-15 09:47] LABS: EPITHELIAL CELLS FEW /hpf; URINE MUCUS 1+
[2022-06-15 09:48] LABS: URINE HYALINE CAST 0-2 /lpf
[2022-06-15 10:29] LABS: PLATELET ESTIMATE ADEQUATE
[2022-06-15] MEDS ORDERED: ACETAMINOPHEN 325 MG TABLET (FP) PO PRN (12:56)
[2022-06-15] MEDS ORDERED: hydrALAZINE HCL 20 MG/ML VIAL IM PRN (13:10)
[2022-06-15] MEDS ORDERED: SENNOSIDES 8.6MG TABLET (FP) PO PRN (13:10)
[2022-06-15] MEDS: SODIUM CHLORIDE 1,000 ML IV SCH (13:41)
[2022-06-15] MEDS ORDERED: morphine SULFATE 4 MG/ML VIAL IVPUSH ONE (14:30)
[2022-06-15] MEDS: POLYETHYLENE GLYCOL (HEALTHYLAX) 3350 17 GM PACKET PO SCH (15:03)
[2022-06-15] MEDS: ENOXAPARIN NA (PORCINE) 40 MG/0.4 ML DISP.SYRIN SQ SCH (15:03)
[2022-06-15] MEDS: INSULIN SLIDING SCALE (NOVOLOG) 1 VIAL SQ SCH ×2 (16:43→21:52)
[2022-06-15] MEDS ORDERED: IBUPROFEN 400 MG TABLET (FP) PO ONE (21:01)
[2022-06-15] MEDS: DOCUSATE SODIUM 100 MG CAPSULE (FP) PO SCH (21:36)
[2022-06-15] MEDS: INSULIN (LEVEMIR) 100 UNITS/ML UNITS SQ SCH (21:46)
[2022-06-15] MEDS ORDERED: PATIENT'S OWN MEDICATION (NON-FORMULARY) (Insulin Glargine,Hum.Rec.Anlog [Lantus] 100 UNIT SQ SCH (22:00)
[2022-06-16] MEDS: INSULIN (LEVEMIR) 100 UNITS/ML UNITS SQ SCH ×2 (06:31→21:23)
[2022-06-16] MEDS: INSULIN SLIDING SCALE (NOVOLOG) 1 VIAL SQ SCH ×4 (06:41→21:23)
[2022-06-16] MEDS: INSULIN (NOVOLOG) ASPART 100 UNITS/ML 10ML VIAL SQ SCH ×3 (06:48→16:37)
[2022-06-16 08:50] LABS: HEMATOCRIT 42.9 % (35.4-49); HEMOGLOBIN 15.4 G/dL (11.7-16.9); MCH 31.1 pg (25.7-33.7); MCHC 35.8 g/dl (32.0-35.9); MEAN PLT VOLUME 8.9 fl (7.5-11.1); PLATELET COUNT 210.5 10^3/uL (134-434); RBC 4.93 10^6/uL (4.00-5.60); RDW 13.4 % (11.9-15.9); WHITE BLOOD COUNT 9.6 10^3/uL (4.0-10.8)
[2022-06-16] MEDS: ENOXAPARIN NA (PORCINE) 40 MG/0.4 ML DISP.SYRIN SQ SCH (09:04)
[2022-06-16] MEDS: CEFTRIAXONE 1 GM in DEXTROSE 5%-WATER - 50 ML IVPB SCH (09:04)
[2022-06-16] MEDS: DOCUSATE SODIUM 100 MG CAPSULE (FP) PO SCH ×2 (09:04→21:23)
[2022-06-16] MEDS: POLYETHYLENE GLYCOL (HEALTHYLAX) 3350 17 GM PACKET PO SCH (09:04)
[2022-06-16] MEDS: MULTIVITAMINS (DAILY MVI) TABLET (FP) PO SCH (09:05)
[2022-06-16 09:24] LABS: CALCIUM 8.8 mg/dl (8.5-10); CREATININE 1.3 mg/dl (0.55-1.3)
[2022-06-16] MEDS ORDERED: PATIENT'S OWN MEDICATION (NON-FORMULARY) (Multivitamin [Multivitamin] 1 EACH Tablet) PO SCH (10:00)
[2022-06-16] MEDS ORDERED: CEFTRIAXONE 1 G/50 ML PREMIX 50 ML IVPB SCH (10:00)
[2022-06-16] MEDS ORDERED: CEFTRIAXONE 1 GM in DEXTROSE 5%-WATER - 50 ML IVPB SCH (10:00)
[2022-06-16] MEDS: IBUPROFEN 400 MG TABLET (FP) PO PRN ×2 (10:51→21:24)
[2022-06-16] MEDS ORDERED: PHENAZOPYRIDINE HCL 100 MG TABLET (FP) PO ONE (11:24)
[2022-06-16] MEDS ORDERED: BENZOCAINE/MENTH/CETYLPYRD CL 1 EACH LOZENGE MM PRN (11:30)
[2022-06-16] MEDS ORDERED: FAMOTIDINE 20 MG TABLET PO SCH (11:30)
[2022-06-16] MEDS: FAMOTIDINE 10 MG TABLET PO SCH (13:43)
[2022-06-16] MEDS: LOSARTAN POTASSIUM 50 MG TABLET PO SCH (14:31)
[2022-06-16 15:12] LABS: EPITHELIAL CELLS RARE /hpf; URINE MUCUS 1+
[2022-06-16] MEDS: LIDOCAINE 5% TOPICAL PATCH TP SCH (15:52)
[2022-06-16] MEDS ORDERED: LIDOCAINE PATCH REMOVAL MC SCH (22:00)
[2022-06-17] MEDS: INSULIN (NOVOLOG) ASPART 100 UNITS/ML 10ML VIAL SQ SCH ×3 (06:39→16:15)
[2022-06-17] MEDS: INSULIN SLIDING SCALE (NOVOLOG) 1 VIAL SQ SCH ×4 (06:40→21:17)
[2022-06-17] MEDS: INSULIN (LEVEMIR) 100 UNITS/ML UNITS SQ SCH ×2 (06:41→21:18)
[2022-06-17 08:12] LABS: HEMATOCRIT 40.9 % (35.4-49); HEMOGLOBIN 14.1 G/dL (11.7-16.9); MCH 30.3 pg (25.7-33.7); MCHC 34.4 g/dl (32.0-35.9); MEAN CELL VOLUME 87.9 fl (80-96); MEAN PLT VOLUME 8.8 fl (7.5-11.1); PLATELET COUNT 196.8 10^3/uL (134-434); RBC 4.65 10^6/uL (4.00-5.60); RDW 13.7 % (11.9-15.9); WHITE BLOOD COUNT 6.4 10^3/uL (4.0-10.8)
[2022-06-17 08:17] LABS: CALCIUM 8.7 mg/dl (8.5-10); CREATININE 1.2 mg/dl (0.55-1.3)
[2022-06-17] MEDS: LOSARTAN POTASSIUM 50 MG TABLET PO SCH (09:29)
[2022-06-17] MEDS: MULTIVITAMINS (DAILY MVI) TABLET (FP) PO SCH (09:29)
[2022-06-17] MEDS: FAMOTIDINE 10 MG TABLET PO SCH (09:29)
[2022-06-17] MEDS: CEFTRIAXONE 1 GM in DEXTROSE 5%-WATER - 50 ML IVPB SCH (09:29)
[2022-06-17] MEDS: ENOXAPARIN NA (PORCINE) 40 MG/0.4 ML DISP.SYRIN SQ SCH (09:32)
[2022-06-17] MEDS: POLYETHYLENE GLYCOL (HEALTHYLAX) 3350 17 GM PACKET PO SCH ×3 (09:33→21:10)
[2022-06-17] MEDS: LIDOCAINE 5% TOPICAL PATCH TP SCH (09:33)
[2022-06-17] MEDS: DOCUSATE SODIUM 100 MG CAPSULE (FP) PO SCH ×2 (09:33→21:09)
[2022-06-17] MEDS: SODIUM CHLORIDE 1,000 ML IV SCH ×2 (09:34→12:53)
[2022-06-17] MEDS: PANTOPRAZOLE 40 MG TABLET PO SCH (09:35)
[2022-06-17] MEDS ORDERED: METOCLOPRAMIDE HCL INJECTION 10 MG/2 ML VIAL IVPUSH PRN (12:30)
[2022-06-17 18:24] LABS: ALBUMIN 2.8 g/dl (3.4-5.0); BILIRUBIN,DIRECT 0.1 mg/dL (0.0-0.2); BILIRUBIN,TOTAL 0.4 mg/dl (0.2-1); TOT PROT 5.7 g/dl (6.4-8.2)
[2022-06-17] MEDS ORDERED: MELATONIN 5 MG TABLETS PO ONE (21:54)
[2022-06-17] MEDS: ACETAMINOPHEN 1000 MG/100 ML BAG IVPB PRN (22:07)
[2022-06-18] MEDS: ACETAMINOPHEN 1000 MG/100 ML BAG IVPB PRN (06:11)
[2022-06-18] MEDS: INSULIN SLIDING SCALE (NOVOLOG) 1 VIAL SQ SCH ×3 (06:20→16:58)
[2022-06-18] MEDS: INSULIN (NOVOLOG) ASPART 100 UNITS/ML 10ML VIAL SQ SCH ×3 (06:42→16:55)
[2022-06-18] MEDS: INSULIN (LEVEMIR) 100 UNITS/ML UNITS SQ SCH (06:58)
[2022-06-18] MEDS: MULTIVITAMINS (DAILY MVI) TABLET (FP) PO SCH (09:25)
[2022-06-18] MEDS: CEFTRIAXONE 1 GM in DEXTROSE 5%-WATER - 50 ML IVPB SCH (09:25)
[2022-06-18] MEDS: PANTOPRAZOLE 40 MG TABLET PO SCH (09:26)
[2022-06-18] MEDS: LOSARTAN POTASSIUM 50 MG TABLET PO SCH (09:26)
[2022-06-18] MEDS: FAMOTIDINE 10 MG TABLET PO SCH (09:26)
[2022-06-18] MEDS: POLYETHYLENE GLYCOL (HEALTHYLAX) 3350 17 GM PACKET PO SCH (09:31)
[2022-06-18] MEDS: DOCUSATE SODIUM 100 MG CAPSULE (FP) PO SCH (09:31)
[2022-06-18] MEDS: LIDOCAINE 5% TOPICAL PATCH TP SCH (09:32)
[2022-06-18] MEDS: ENOXAPARIN NA (PORCINE) 40 MG/0.4 ML DISP.SYRIN SQ SCH (09:32)
[2022-06-18] MEDS: SODIUM CHLORIDE 1,000 ML IV SCH (12:45)
[2022-06-18 17:31] VITALS: BMI 30.4
[2022-06-18 18:20] VITALS: BP 137/60; PULSE 71; RESP 17; TEMP 98.4
== END 2022-06-18 18:21 | disposition home or self-care (01) | DRG 463 ==
LOC: FER 06:51 → FM/S 12:33
PROVIDERS: ADMIT Internal Medicine; ATTEND Family Medicine
DX: N30.01 Acute cystitis with hematuria (principal); E10.43 Type 1 diabetes mellitus with diabetic autonomic (poly)neuropathy; E10.65 Type 1 diabetes mellitus with hyperglycemia; E78.5 Hyperlipidemia, unspecified; K21.9 Gastro-esophageal reflux disease without esophagitis; M06.9 Rheumatoid arthritis, unspecified; M45.9 Ankylosing spondylitis of unspecified sites in spine; R80.9 Proteinuria, unspecified; J02.9 Acute pharyngitis, unspecified; D72.829 Elevated white blood cell count, unspecified; K56.7 Ileus, unspecified; E87.1 Hypo-osmolality and hyponatremia; N17.9 Acute kidney failure, unspecified; K44.9 Diaphragmatic hernia without obstruction or gangrene; M54.50 Low back pain, unspecified; K31.84 Gastroparesis; K80.80 Other cholelithiasis without obstruction
CPT/HCPCS: 36415; 71046-TC-FY; 74177-TC; 76705-TC; 80048; 80053; 80076; 81003; 81015; 82962; 83036; 83605; 85027; 87040; 87070; 87086; 87186; 93005; 93010; 99285-25; C9803-CS; Q9967; U0003; U0005

== ENCOUNTER 2024-01-09 06:25 | Inpatient (IN) | payer BC, OTHER ==
[2024-01-09 06:38] VITALS: BMI 30.4
[2024-01-09] MEDS ORDERED: KETOROLAC TROMETHAMINE 15 MG/ML VIAL ONE (07:42)
[2024-01-09] MEDS ORDERED: ACETAMINOPHEN INJECTION 100 ML IVPB ONE (07:42)
[2024-01-09] MEDS: KETOROLAC TROMETHAMINE 30 MG/1 ML VIAL IVPUSH ONE (07:59)
[2024-01-09] MEDS: SODIUM CHLORIDE 1,000 ML IV ONE ×2 (07:59→14:34)
[2024-01-09] MEDS: ACETAMINOPHEN 1000 MG/100 ML BAG IVPB ONE ×2 (07:59→21:35)
[2024-01-09 08:33] LABS: HEMATOCRIT 43.3 % (35.4-49); HEMOGLOBIN 14.6 G/dL (11.7-16.9); MCH 29.8 pg (25.7-33.7); MCHC 33.6 g/dl (32.0-35.9); MEAN CELL VOLUME 88.7 fl (80-96); PLATELET COUNT 349.9 10^3/uL (134-434); RBC 4.88 10^6/uL (4.00-5.60); RDW 14.8 % (11.9-15.9); WHITE BLOOD COUNT 7.7 10^3/uL (4.0-10.8)
[2024-01-09 08:50] LABS: ALBUMIN 4.5 g/dl (3.4-5.0); BILIRUBIN,TOTAL 0.5 mg/dl (0.2-1); CALCIUM 9.7 mg/dl (8.5-10.1); CREATININE 1.6 mg/dl (0.6-1.3); POTASSIUM 4.8 mmol/L (3.5-5.1); TOT PROT 7.3 g/dl (6.4-8.2)
[2024-01-09 09:07] LABS: PLATELET ESTIMATE ADEQUATE
[2024-01-09] MEDS ORDERED: ASPIRIN 81 MG CHEWABLE TABLETS ONE (14:00)
[2024-01-09] MEDS: ASPIRIN 81 MG CHEWABLE TABLETS PO ONE (14:07)
[2024-01-09] MEDS: INSULIN ASPART SLIDING SCALE (NOVOLOG) 1 VIAL SQ SCH (15:47)
[2024-01-09] MEDS: SODIUM CHLORIDE 0.45% 1,000 ML IV SCH (15:50)
[2024-01-09] MEDS: HEPARIN NA (PORCINE) 5,000 UNITS/ML 1ML VIAL SQ SCH (21:39)
[2024-01-09] MEDS: INSULIN (LEVEMIR) 100 UNITS/ML UNITS SQ SCH (21:41)
[2024-01-10 00:23] VITALS: RESP 18
[2024-01-10] MEDS: traMADol HCL 50 MG TABLET PO ONE (01:07)
[2024-01-10 08:54] LABS: HEMOGLOBIN 12.8 G/dL (11.7-16.9); MCH 28.4 pg (25.7-33.7); MCHC 31.9 g/dl (32.0-35.9); MEAN CELL VOLUME 89.1 fl (80-96); PLATELET COUNT 262.2 10^3/uL (134-434); RBC 4.49 10^6/uL (4.00-5.60); RDW 14.7 % (11.9-15.9); WHITE BLOOD COUNT 5.7 10^3/uL (4.0-10.8)
[2024-01-10 09:06] LABS: ALBUMIN 3.8 g/dl (3.4-5.0); BILIRUBIN,TOTAL 0.3 mg/dl (0.2-1); CREATININE 1.3 mg/dl (0.6-1.3); MAGNESIUM 1.9 mg/dL (1.8-2.4); PHOSPHOROUS 4.3 (2.5-4.9); POTASSIUM 4.5 mmol/L (3.5-5.1); TOT PROT 6.1 g/dl (6.4-8.2)
[2024-01-10] MEDS: PANTOPRAZOLE 40 MG TABLET PO SCH (09:57)
[2024-01-10 10:21] VITALS: BP 142/69; PULSE 56; TEMP 98.1
[2024-01-10] MEDS ORDERED: ATORVASTATIN CA 20 MG TABLET (FP) PO SCH (22:00)
== END 2024-01-10 11:45 | disposition home or self-care (01) | DRG 313 ==
LOC: FER 06:25 → FM/S 14:21 → OBSVTOIN 15:35
PROVIDERS: ADMIT Internal Medicine; ATTEND Internal Medicine
DX: R07.89 Other chest pain (principal); E78.5 Hyperlipidemia, unspecified; K21.9 Gastro-esophageal reflux disease without esophagitis; K44.9 Diaphragmatic hernia without obstruction or gangrene; M54.50 Low back pain, unspecified; E11.22 Type 2 diabetes mellitus with diabetic chronic kidney disease; N18.9 Chronic kidney disease, unspecified; M45.9 Ankylosing spondylitis of unspecified sites in spine; R80.9 Proteinuria, unspecified; N20.0 Calculus of kidney; K80.20 Calculus of gallbladder without cholecystitis without obstruction
CPT/HCPCS: 36415; 71046-TC-FY; 71275-TC; 72070-TC-FY; 74175-TC; 80053; 80061; 82010; 82550; 82553; 82962; 83036; 83690; 83735; 84100; 84443; 84484; 85027; 93005; 99285-25; G0378; J0131; J1644; Q9967

== ENCOUNTER 2025-02-21 12:40 | Emergency (ER) | payer BC ==
[2025-02-21 12:50] VITALS: BP 186/102; PULSE 87; RESP 18; TEMP 97.8; BMI 31.1
[2025-02-21] MEDS ORDERED: ACETAMINOPHEN 500 MG TABLET (FP) ONE (13:23)
[2025-02-21] MEDS ORDERED: LIDOCAINE 5% TOPICAL PATCH ONE (13:24)
[2025-02-21] MEDS ORDERED: KETOROLAC TROMETHAMINE 30 MG/1 ML VIAL ONE (13:24)
[2025-02-21] MEDS ORDERED: IBUPROFEN 400 MG TABLET (FP) PO ONE (13:29)
[2025-02-21] MEDS: ACETAMINOPHEN 500 MG TABLET (FP) PO ONE (13:32)
[2025-02-21] MEDS: IBUPROFEN 400 MG TABLET (FP) PO ONE (13:33)
[2025-02-21] MEDS: LIDOCAINE 5% TOPICAL PATCH TP ONE (13:34)
[2025-02-21] MEDS: KETOROLAC TROMETHAMINE 30 MG/1 ML VIAL IM ONE (14:55)
[2025-02-21] MEDS ORDERED: LIDOCAINE PATCH REMOVAL MC ONE (22:00)
== END 2025-02-21 16:06 | disposition left against medical advice (07) ==
LOC: FER 12:40
DX: M54.6 Pain in thoracic spine (principal)
CPT/HCPCS: 72128-TC; 99284-25